=== PATIENT | male | born 1980 | race Two or more races ===

== ENCOUNTER 2021-06-20 11:30 | Emergency (ER) | payer OTHER ==
[~2021-06-20] VITALS: Ht 157.5 cm; Wt 83.5 kg
[2021-06-20 13:31] LABS: Basophils # (auto) 0.1 10 ^3/uL (0-0.2); Basophils % (auto) 1.1 % (0.0-2.0); Eosinophils # (auto) 0 10 ^3/uL (0-0.8); Eosinophils % (auto) 0.7 % (0.0-7.0); Hematocrit 49.4 % (41.0-53.0); Lymphocytes % (auto) 32.6 % (10.0-50.0); Mean Corpuscular Hemoglobin 32.7 pg (28.0-32.0); Mean Corpuscular Hgb Conc. 34.5 g/dL (32.0-36.0); Mean Corpuscular Volume 94.8 fL (80.0-100.0); Monocytes # (auto) 0.5 10 ^3/uL (0-1.3); Monocytes % (auto) 7.9 % (0.0-12.0); Neutrophils # (auto) 3.5 10 ^3/uL (1.6-8.6); Neutrophils % (auto) 57.7 % (37.0-80.0); Nucleated Red Blood Cells % 0.1 %; Red Blood Cells 5.21 10^6/uL (4.5-5.90); Red Cell Distribution Width 13.9 % (11.8-14.3); White Blood Cell 6.1 10^3/uL (4.4-10.8)
[2021-06-20 13:47] LABS: Albumin 3.1 g/dL (3.4-5.0); BUN/Creatinine Ratio 11.4; Calcium 8.8 mg/dL (8.5-10.1)
[2021-06-20 13:49] LABS: Bilirubin, Total 0.6 mg/dL (0.2-1.0); Total Protein 7.1 g/dL (6.4-8.2)
[2021-06-20 17:36] VITALS: BP 118/74
== END 2021-06-20 14:17 | disposition home or self-care (01) ==
LOC: ER 11:30
DX: K52.9 Noninfective gastroenteritis and colitis, unspecified (principal); E44.1 Mild protein-calorie malnutrition; J45.909 Unspecified asthma, uncomplicated; E78.5 Hyperlipidemia, unspecified; Z68.33 Body mass index [BMI] 33.0-33.9, adult
CPT/HCPCS: 36415; 74176; 80053; 83690; 85025

== ENCOUNTER 2021-08-15 17:46 | Inpatient (IN) | payer OTHER ==
[~2021-08-15] VITALS: Ht 157.5 cm; Wt 83.3 kg
[2021-08-15] MEDS ORDERED: SODIUM CHLORIDE 0.9% 1,000 ML IV ONE (18:45)
[2021-08-15] MEDS ORDERED: ONDANSETRON HCL 4 MG/2 ML VIAL IV ONE (18:45)
[2021-08-15 19:31] LABS: Basophils # (auto) 0 10 ^3/uL (0-0.2); Basophils % (auto) 0.4 % (0.0-2.0); Eosinophils # (auto) 0 10 ^3/uL (0-0.8); Eosinophils % (auto) 0.1 % (0.0-7.0); Hematocrit 52.9 % (41.0-53.0); Lymphocytes % (auto) 8.5 % (10.0-50.0); Mean Corpuscular Hemoglobin 30.9 pg (28.0-32.0); Mean Corpuscular Hgb Conc. 32.2 g/dL (32.0-36.0); Mean Corpuscular Volume 95.9 fL (80.0-100.0); Monocytes # (auto) 0.4 10 ^3/uL (0-1.3); Monocytes % (auto) 3.2 % (0.0-12.0); Neutrophils # (auto) 10.4 10 ^3/uL (1.6-8.6); Neutrophils % (auto) 87.8 % (37.0-80.0); Nucleated Red Blood Cells % 0.2 %; Red Blood Cells 5.52 10^6/uL (4.5-5.90); Red Cell Distribution Width 14.6 % (11.8-14.3); White Blood Cell 11.9 10^3/uL (4.4-10.8)
[2021-08-15 19:35] LABS: Albumin 3.6 g/dL (3.4-5.0); Calcium 8.8 mg/dL (8.5-10.1); Potassium 3.6 mmol/L (3.5-5.1)
[2021-08-15 19:39] LABS: BUN/Creatinine Ratio 12.7; Bilirubin, Total 1.1 mg/dL (0.2-1.0); Total Protein 7.5 g/dL (6.4-8.2)
[2021-08-15] MEDS ORDERED: DOCUSATE SOD 100 MG CAP PO PRN (22:45)
[2021-08-15] MEDS ORDERED: HYDROcodone-ACET 5/325MG TAB PO PRN (22:45)
[2021-08-15] MEDS ORDERED: LORazepam 0.5 MG TAB PO PRN (22:45)
[2021-08-15] MEDS ORDERED: ONDANSETRON HCL 4 MG/2 ML VIAL IV PRN (22:45)
[2021-08-15] MEDS ORDERED: DEXTROSE (50%) 50ML SYRG IV PRN (22:45)
[2021-08-15] MEDS ORDERED: ACETAMINOPHEN 325 MG TAB PO PRN (22:45)
[2021-08-15] MEDS: SODIUM CHLORIDE 0.9% 1,000 ML IV SCH (23:45)
[2021-08-16] MEDS: ACCU-CHEK COMFORT CURVE STRIP VI SCH ×6 (00:02→21:52)
[2021-08-16 03:27] VITALS: BP 92/48
[2021-08-16] MEDS: InsuLIN REG 1unit/0.01ml Soln (100units/ml) SC SCH ×6 (04:00→20:00)
[2021-08-16] MEDS ORDERED: CHOL20007 PO (07:28)
[2021-08-16] MEDS ORDERED: LEVO25TA49 PO (07:28)
[2021-08-16] MEDS ORDERED: CYCL-838 PO (07:28)
[2021-08-16] MEDS ORDERED: PANT40TA2 PO (07:28)
[2021-08-16] MEDS ORDERED: LORA-622 PO (07:28)
[2021-08-16] MEDS ORDERED: FENO5TAB PO (07:28)
[2021-08-16] MEDS ORDERED: CEPH-322 PO (07:28)
[2021-08-16 08:00] VITALS: BP 97/54
[2021-08-16 08:00] LABS: Basophils # (auto) 0 10 ^3/uL (0-0.2); Basophils % (auto) 0.4 % (0.0-2.0); Eosinophils # (auto) 0 10 ^3/uL (0-0.8); Eosinophils % (auto) 0.6 % (0.0-7.0); Hematocrit 48.7 % (41.0-53.0); Hemoglobin 15.7 g/dL (13.5-17.5); Lymphocytes # (auto) 1.6 10 ^3/uL (0.4-5.4); Lymphocytes % (auto) 19.7 % (10.0-50.0); Mean Corpuscular Hemoglobin 31.1 pg (28.0-32.0); Mean Corpuscular Hgb Conc. 32.2 g/dL (32.0-36.0); Mean Corpuscular Volume 96.7 fL (80.0-100.0); Monocytes # (auto) 0.4 10 ^3/uL (0-1.3); Monocytes % (auto) 5.1 % (0.0-12.0); Neutrophils % (auto) 74.2 % (37.0-80.0); Red Blood Cells 5.04 10^6/uL (4.5-5.90); Red Cell Distribution Width 14.6 % (11.8-14.3); White Blood Cell 8.1 10^3/uL (4.4-10.8)
[2021-08-16 08:45] LABS: Potassium 3.6 mmol/L (3.5-5.1)
[2021-08-16 08:58] LABS: BUN/Creatinine Ratio 10.7; Calcium 7.8 mg/dL (8.5-10.1)
[2021-08-16] MEDS ORDERED: cefTRIAXone 1GM/50ML D5W 50 ML IV SCH (10:00)
[2021-08-16 12:00] VITALS: BP 105/62
[2021-08-16 12:02] VITALS: BP 97/54
[2021-08-16] MEDS ORDERED: IPRATROPIUM BROM 0.5 MG/2.5ML INH SOL NEB SCH (14:00)
[2021-08-16] MEDS: IPRATROPIUM BROM 0.5 MG/2.5ML INH SOL NEB SCH ×2 (14:30→21:42)
[2021-08-16] MEDS: SODIUM CHLORIDE 0.9% 1,000 ML IV SCH (15:34)
[2021-08-16 16:00] VITALS: BP 94/57
[2021-08-16] MEDS: BUDESONIDE (INHALATION) 0.5 MG/2 ML NEB NEB SCH (21:42)
[2021-08-16 22:00] VITALS: BP 129/76
[2021-08-17] MEDS: ACCU-CHEK COMFORT CURVE STRIP VI SCH ×3 (00:02→09:06)
[2021-08-17] MEDS: InsuLIN REG 1unit/0.01ml Soln (100units/ml) SC SCH ×6 (04:00→21:24)
[2021-08-17 04:32] VITALS: BP 122/82
[2021-08-17] MEDS: BUDESONIDE (INHALATION) 0.5 MG/2 ML NEB NEB SCH ×2 (06:15→19:19)
[2021-08-17] MEDS: IPRATROPIUM BROM 0.5 MG/2.5ML INH SOL NEB SCH ×3 (06:15→19:19)
[2021-08-17 09:00] VITALS: BP 98/50
[2021-08-17] MEDS: PANTOPRAZOLE 40 MG/10 ML VIAL INJ IV SCH (10:05)
[2021-08-17] MEDS ORDERED: DEXTROSE (50%) 50ML SYRG IV PRN (11:00)
[2021-08-17] MEDS ORDERED: CYCLOBENZAPRINE HCL 10 MG TAB PO PRN (11:00)
[2021-08-17 13:00] VITALS: BP 115/64
[2021-08-17] MEDS: SODIUM CHLORIDE 0.9% 1,000 ML IV SCH (14:00)
[2021-08-17 17:00] VITALS: BP 133/70
[2021-08-17 20:35] LABS: Urine WBC None Seen /hpf (0 - 3)
[2021-08-17 20:41] LABS: Urine Bacteria NONE SEEN /hpf (None Seen); Urine Blood Negative /uL (Negative); Urine Specific Gravity 1.007 (1.001-1.035)
[2021-08-17 22:08] VITALS: BP 121/71
[2021-08-18] MEDS: SODIUM CHLORIDE 0.9% 1,000 ML IV SCH ×2 (00:45→17:58)
[2021-08-18 05:04] VITALS: BP 110/66
[2021-08-18] MEDS: LEVOTHYROXINE SODIUM 25 MCG TAB PO SCH (06:03)
[2021-08-18] MEDS: InsuLIN REG 1unit/0.01ml Soln (100units/ml) SC SCH ×4 (06:47→21:43)
[2021-08-18] MEDS: IPRATROPIUM BROM 0.5 MG/2.5ML INH SOL NEB SCH ×3 (07:20→19:42)
[2021-08-18 09:00] VITALS: BP 115/69
[2021-08-18] MEDS: PANTOPRAZOLE 40 MG/10 ML VIAL INJ IV SCH (09:34)
[2021-08-18] MEDS: BUDESONIDE (INHALATION) 0.5 MG/2 ML NEB NEB SCH ×2 (09:58→19:42)
[2021-08-18 13:00] VITALS: BP 131/83
[2021-08-18] MEDS ORDERED: GASTROGRAFIN 120 ML SOL ONE (14:57)
[2021-08-18] MEDS ORDERED: EZ-GAS II GRANULES (RADIOLOGY USE) PO ONE (15:00)
[2021-08-18 17:00] VITALS: BP 120/76
[2021-08-19 05:00] VITALS: BP 98/71
[2021-08-19] MEDS: SODIUM CHLORIDE 0.9% 1,000 ML IV SCH ×2 (05:42→21:30)
[2021-08-19] MEDS: InsuLIN REG 1unit/0.01ml Soln (100units/ml) SC SCH ×4 (05:46→21:27)
[2021-08-19] MEDS: LEVOTHYROXINE SODIUM 25 MCG TAB PO SCH (06:10)
[2021-08-19] MEDS: IPRATROPIUM BROM 0.5 MG/2.5ML INH SOL NEB SCH ×3 (06:17→22:31)
[2021-08-19] MEDS: BUDESONIDE (INHALATION) 0.5 MG/2 ML NEB NEB SCH ×2 (06:17→22:31)
[2021-08-19 09:00] VITALS: BP 136/72
[2021-08-19 10:08] VITALS: BP 136/72
[2021-08-19] MEDS: PANTOPRAZOLE 40 MG/10 ML VIAL INJ IV SCH (11:07)
[2021-08-19 13:00] VITALS: BP 140/70
[2021-08-19 17:06] VITALS: BP 105/68
[2021-08-19 22:00] VITALS: BP 122/79
[2021-08-20 05:23] VITALS: BP 117/84
[2021-08-20] MEDS: LEVOTHYROXINE SODIUM 25 MCG TAB PO SCH (06:31)
[2021-08-20] MEDS: InsuLIN REG 1unit/0.01ml Soln (100units/ml) SC SCH ×2 (06:33→12:10)
[2021-08-20] MEDS: BUDESONIDE (INHALATION) 0.5 MG/2 ML NEB NEB SCH (06:39)
[2021-08-20] MEDS: IPRATROPIUM BROM 0.5 MG/2.5ML INH SOL NEB SCH ×2 (06:39→12:11)
[2021-08-20 09:00] VITALS: BP 112/77
[2021-08-20] MEDS: PANTOPRAZOLE 40 MG/10 ML VIAL INJ IV SCH (10:55)
[2021-08-20 13:00] VITALS: BP 115/67
== END 2021-08-20 13:23 | disposition home or self-care (01) | DRG 247 ==
LOC: ER 17:46 → OVERFLOW 22:32 → EAST 08-16 01:24
PROVIDERS: ADMIT Hospitalist; ATTEND Family Medicine
DX: K56.600 Partial intestinal obstruction, unspecified as to cause (principal); K76.0 Fatty (change of) liver, not elsewhere classified; J44.1 Chronic obstructive pulmonary disease with (acute) exacerbation; K62.5 Hemorrhage of anus and rectum; Q90.9 Down syndrome, unspecified; E03.9 Hypothyroidism, unspecified; E78.00 Pure hypercholesterolemia, unspecified; Z20.822 Contact with and (suspected) exposure to COVID-19; G89.29 Other chronic pain
CPT/HCPCS: 36415; 74176; 74246; 76705; 80048; 80053; 80061; 81001; 82962; 83036; 83605; 83690; 84484; 85025; 93005; 94640; 96361; 96365; 96375; C9113; G0378; J0696; J1815; J2405

== ENCOUNTER 2021-12-14 21:29 | Emergency (ER) | payer MEDICAID ==
[~2021-12-14] VITALS: Ht 167.6 cm; Wt 86.0 kg
[~2021-12-14 21:29] MED LIST: CEPH-322 PO; CHOL20007 PO; CYCL-838 PO; FENO5TAB PO; LEVO25TA49 PO; LORA-622 PO; PANT40TA2 PO
[2021-12-14 22:19] VITALS: BP 120/77
[2021-12-14 22:35] LABS: Basophils # (auto) 0.1 10 ^3/uL (0-0.2); Basophils % (auto) 0.7 % (0.0-2.0); Eosinophils # (auto) 0 10 ^3/uL (0-0.8); Eosinophils % (auto) 0.1 % (0.0-7.0); Hematocrit 51.1 % (41.0-53.0); Hemoglobin 17.2 g/dL (13.5-17.5); Lymphocytes # (auto) 1.1 10 ^3/uL (0.4-5.4); Lymphocytes % (auto) 8.9 % (10.0-50.0); Mean Corpuscular Hemoglobin 31.7 pg (28.0-32.0); Mean Corpuscular Hgb Conc. 33.6 g/dL (32.0-36.0); Mean Corpuscular Volume 94.4 fL (80.0-100.0); Monocytes # (auto) 0.5 10 ^3/uL (0-1.3); Monocytes % (auto) 4.3 % (0.0-12.0); Neutrophils # (auto) 10.4 10 ^3/uL (1.6-8.6); Red Blood Cells 5.41 10^6/uL (4.5-5.90); Red Cell Distribution Width 14.4 % (11.8-14.3)
[2021-12-14] MEDS ORDERED: IOHEXOL 350 MG/ML 100ML IJ ONE (22:50)
[2021-12-14 22:59] LABS: Albumin 3.4 g/dL (3.4-5.0); BUN/Creatinine Ratio 11.3; Calcium 8.9 mg/dL (8.5-10.1); Magnesium 2.3 mg/dL (1.6-2.6); Potassium 4.1 mmol/L (3.5-5.1)
[2021-12-14 23:07] LABS: Bilirubin, Total 0.8 mg/dL (0.2-1.0); Total Protein 7.3 g/dL (6.4-8.2)
[2021-12-14 23:38] LABS: Urine Bacteria NONE SEEN /hpf (None Seen); Urine Blood Negative /uL (Negative); Urine WBC <1 /hpf (0 - 3)
[2021-12-14 23:39] LABS: Urine Specific Gravity > 1.050 (1.001-1.035)
[2021-12-14] MEDS ORDERED: metroNIDAZOLE 500 MG TAB PO ONE (23:45)
[2021-12-14] MEDS ORDERED: levoFLOXacin 500 MG TAB PO ONE (23:45)
[2021-12-14] MEDS ORDERED: LEVO500T31 PO (23:49)
[2021-12-14] MEDS ORDERED: METR500T PO (23:49)
== END 2021-12-15 00:30 | disposition home or self-care (01) ==
LOC: EDBD 21:29 → EDUNIT# 21:29 → ER 21:32
DX: K29.70 Gastritis, unspecified, without bleeding (principal); K52.9 Noninfective gastroenteritis and colitis, unspecified; J45.909 Unspecified asthma, uncomplicated; E78.5 Hyperlipidemia, unspecified; E03.9 Hypothyroidism, unspecified; Z90.89 Acquired absence of other organs; Z79.899 Other long term (current) drug therapy
CPT/HCPCS: 36415; 74177; 80053; 81001; 82150; 83690; 83735; 85025; 99285; Q9967

== ENCOUNTER 2023-08-07 19:54 | Emergency (ER) | payer MEDICAID ==
[~2023-08-07] VITALS: Ht 157.5 cm; Wt 77.2 kg
[~2023-08-07 19:54] MED LIST changes: -CEPH-322 PO; +CEPH250C PO; +LEVO25TA2 PO; -LEVO25TA49 PO; +LEVO500T31 PO; +METR500T PO
[2023-08-07] MEDS ORDERED: AMOX500C2 PO (22:53)
[2023-08-07] MEDS: DexAMETHasone SOD PHOS 10MG/1ML VIAL INJ IM ONE (23:36)
[2023-08-07 23:37] VITALS: BP 116/59; PULSE 88; RESP 18; TEMP 98.9
[2023-08-07] MEDS: ACETAMINOPHEN 325 MG TAB PO ONE (23:37)
[2023-08-07 23:47] VITALS: O2SAT 98
== END 2023-08-07 23:49 | disposition home or self-care (01) ==
LOC: ER 19:54
DX: J02.0 Streptococcal pharyngitis (principal); J45.909 Unspecified asthma, uncomplicated; E78.5 Hyperlipidemia, unspecified; Z98.890 Other specified postprocedural states; Z79.899 Other long term (current) drug therapy
CPT/HCPCS: 71045; 96372; 99283; J1100

== ENCOUNTER 2024-07-11 15:50 | Emergency (ER) | payer MEDICAID ==
[~2024-07-11] VITALS: Ht 160 cm; Wt 78.0 kg
[~2024-07-11 15:50] MED LIST changes: +AMOX500C2 PO
--- NOTE | 2024-07-11 16:22 | ED.PDOC ---
GI ASSESSMENT HPI Comments HPI: 43 y/o M, brought in by mother, presents to the ED for CC of constipation. Patients mother, reports patient has been experiencing symptoms of decreased bowel output with associated symptoms of intermittent diffuse abdominal pain x3days. Mother relays, patient no longer wants to finish meals which is unlikely of him. Mother endorses, seeing PCP for symptoms and having labs drawn that same day; reports elevated WBC at 12.2. Patient states, last bowel movement to be as of today (07/11/24) and describes it to be loose in appearance. Patient denies fever, chills, nausea, vomiting, melena, or hematochezia. No other symptoms or modifying factors present at this time. Patient taking daily fiber MiraLax Vitals Temperature: 97.8 Respiratory rate: 18 SpO2: 96%RA Heart rate: 88 Blood pressure: 119/74 Past Medical History: Bowel Obstruction, Asthma, Hyperthyroidism, Down-Syndrome Past Surgical History: Tonsillectomy Social History: Denies Any Constipation: DELMA: HPI: Poor Historian. REVIEW OF SYSTEMS: CONSTITUTIONAL: Denies acute: fever, diaphoresis, chills, generalized weakness. HEAD: Denies acute: headache, photophobia Eyes: Denies acute: Double vision, vision loss, eye pain, eye discharge. EARS: Denies acute: tinnitus, hearing loss, ear discharge, ear pain, THROAT: Denies acute: sore throat, swelling, difficulty swallowing , pain with swallowing, change in voice. NECK: Denies acute: neck pain, neck swelling, stiff neck. HEART: Denies acute : chest pain, palpitations, LUNGS: Denies acute: SOB, wheezing, cough, hemoptysis ABDOMEN: Denies acute: Nausea, Vomiting, , melena , hematemesis, hematochezia SKIN: Denies acute: rash, redness, lesions, itchiness. EXTREMITIES: Denies acute: calf pain, numbness, tingling, weakness, denies pain in extremity. Denies acute: Low back pain. Neuro: Denies acute: focal neurological deficit, motor or sensory focal neurological deficit, tremors, seizure like activity, confusion, dizziness, change in mental status, loss of bowel or bladder function, cauda equina like symptoms. : Denies acute: dysuria, hematuria, flank pain, increase in urinary frequency. PSYCH: Denies acute: hallucination, suicidal ideation, homicidal ideation. PHYSICAL EXAM: General: ----no----acute distress, awake and alert. Head: normocephalic, atraumatic. Neck: supple, trachea is midline, no swelling. Throat: Normal phonation. Eyes:, no erythema, no purulent discharge, no proptosis, no icterus. Heart: regular rate, regular rhythm, no significant murmur appreciated. Lungs: no apparent respiratory distress, Able to speak in full sentences. No wheezing, no rhonchi, no crackles. No stridors Clear to auscultation bilaterally. Abdomen: non tender to palpation, non distended, soft, no guarding, no rebound, + bowel sounds. Neuro: Awake, Alert, oriented to name, self, situation, follows commands GCS=15. Speech is normal. Skin: no petechia, no purpura, no cyanosis, non-pale, not jaundice. Lower extremities: --no - Pitting edema no deformity, no focal swelling, no calf TTP. Makes eye contact. moves all four extremities. Ambulating in the ED independently. ED COURSE: Chief Complaint: Constipation Time Seen by MD: 16:00 Primary Care Provider: BECCA Reviewed Notes: Nurses Notes, Medications, Allergies Allergies: Coded Allergies: NO KNOWN ALLERGIES (Unverified , 06/20/21) Home Meds Active Scripts Metronidazole (Flagyl) 500 Mg Tab, 1 TAB PO TID for 7 Days, #21 TAB Prov:MARBIN MARTINEZ DO 07/11/24 Ciprofloxacin Hcl (Cipro) 500 Mg Tab, 500 MG PO BID for 7 Days, #14 TAB Prov:MARBIN MARTINEZ DO 07/11/24 Amoxicillin Trihydrate (Amoxicillin) 500 Mg Cap, 1 CAP PO BID for 10 Days, #20 CAP Prov:AMADEO GONZALEZ PAC 08/07/23 Metronidazole (Flagyl) 500 Mg Tab, 500 MG PO TID, #21 TAB Prov:REINA GARCIA MD 12/14/21 Levofloxacin (Levaquin) 500 Mg Tab, 500 MG PO DAILY PRN, #30 TAB Prov:REINA GARCIA MD 12/14/21 Reported Medications Cholecalciferol (VITAMIN D3) 2,000 Unit Tab, 1 TAB PO DAILY, #30 TAB 5 Refills 08/16/21 Cephalexin (KEFLEX CAPSULE) 250 Mg Cp, 400 MG PO QID 08/16/21 Pantoprazole Sodium Sesquihydr (Protonix) 40 Mg Tab, 40 MG PO DAILY, #30 TAB 08/16/21 Cyclobenzaprine Hcl (CYCLOBENZAPRINE HCL) 7.5 Mg Tab, 10 MG PO BID, TAB 08/16/21 Loratadine (Claritin) 10 Mg Tab, 1 TAB PO DAILY, #30 TAB 5 Refills 08/16/21 Fenofibrate (Tricor) 145 Mg Tab, 145 MG PO DAILY, TAB 08/16/21 Levothyroxine Sodium (Synthroid) 25 Mcg Tab, 1 TAB PO DAILY, #30 TAB 5 Refills 08/16/21 Information Source: Patient, Relative (Mother) Mode of Arrival: Ambulatory Timing: Days Duration: Since onset Prehospital treatment: None Quality: None Vomitus: None Stool: Impaction Severity: Moderate Recent: None Recent Hx of: None Pain Location: Diffuse, None Modifying Factors: Nothing Associated sign and symptoms: Diarrhea, Constipation, Abdominal Pain Was a procedure done? Was a procedure done?: No GI differential Dx Differential Diagnosis: Bowel Obstruction, Constipation, Diverticular disease, Inflammatory BD, Other (DDX include but not limited to diverticulitis, colitis, gastroenteritis, acute abdomen, SBO, enteritis, constipation, volvulus, appendicitis, Gallbladder disease, choledocolithiasis, ascending cholangitis, pancreatitis, intraAbdominal mass/neoplasm, hepatitis, UTI, pylonephritis, kidney stone, aneurysm, dissection, Inflammatory bowel disease, gastroparesis, ischemic bowel.) X-Ray, Labs, Meds, VS Vital Signs Date Time Temp Pulse Resp B/P (MAP) Pulse Ox O2 Delivery O2 Flow Rate FiO2 07/11/24 20:40 Room Air* 0 21 07/11/24 20:11 88 18 96 Room Air 07/11/24 20:11 98.7 88 18 118/84 (95) 96 98.7 07/11/24 16:01 97.8 88 18 119/78 (92) 96 97.8 Lab Test 07/11/24 18:46 07/11/24 16:24 07/11/24 16:03 Range/Units Lactic Acid Level 1.7 3.4 *H 0.4-2.0 mmol/L White Blood Count 10.0 4.4-10.8 10^3/uL Red Blood Count 5.46 4.5-5.90 10^6/uL Hemoglobin 14.3 13.5-17.5 g/dL Hematocrit 44.9 41.0-53.0 % Mean Corpuscular Volume 82.2 80.0-100.0 fL Mean Corpuscular Hemoglobin 26.1 L 28.0-32.0 pg Mean Corpuscular Hemoglobin Concent 31.8 L 32.0-36.0 g/dL Red Cell Distribution Width 28.6 H 11.8-14.3 % Platelet Count 305 140-450 10^3/uL Mean Platelet Volume 7.0 6.9-10.8 fL Neutrophils (%) (Auto) 84.5 H 37.0-80.0 % Lymphocytes (%) (Auto) 11.3 10.0-50.0 % Monocytes (%) (Auto) 3.8 0.0-12.0 % Eosinophils (%) (Auto) 0.1 0.0-7.0 % Basophils (%) (Auto) 0.3 0.0-2.0 % Neutrophils # (Auto) 8.4 1.6-8.6 10 ^3/uL Lymphocytes # (Auto) 1.1 0.4-5.4 10 ^3/uL Monocytes # (Auto) 0.4 0-1.3 10 ^3/uL Eosinophils # (Auto) 0 0-0.8 10 ^3/uL Basophils # (Auto) 0 0-0.2 10 ^3/uL Nucleated Red Blood Cells 0.1 % Sodium Level 138 136-145 mmol/L Potassium Level 4.0 3.5-5.1 mmol/L Chloride Level 101 98-107 mmol/L Carbon Dioxide Level 29 20-31 mmol/L Anion Gap 8 5-15 Blood Urea Nitrogen 15 9-23 mg/dL Creatinine 1.39 H 0.700-1.30 mg/dL Glomerular Filtration Rate Calc 65 >90 mL/min BUN/Creatinine Ratio 10.8 10.0-20.0 Serum Glucose 230 H 74-106 mg/dL Calcium Level 9.1 8.7-10.4 mg/dL Total Bilirubin 0.4 0.2-1.0 mg/dL Aspartate Amino Transferase (AST) 17 13-40 U/L Alanine Aminotransferase (ALT) 21 7-40 U/L Alkaline Phosphatase 57 46-116 U/L Total Protein 6.7 5.7-8.2 g/dL Albumin 4.1 3.2-4.8 g/dL Lipase 26 12-53 U/L Urine Color Light-yellow Yellow Urine Clarity Clear Clear Urine pH 7.0 5.0-9.0 Urine Specific [place] 1.005 1.001-1.035 Urine Protein Negative Negative Urine Ketones Negative Negative Urine Blood Negative Negative /uL Urine Nitrite Negative Negative Urine Bilirubin Negative Negative Urine Urobilinogen Normal Negative mg/dL Urine Leukocyte Esterase Negative Negative /uL Urine RBC None seen 0 - 3 /hpf Urine Microscopic WBC < 1 0-3 /HPF Urine Squamous Epithelial Cells None seen <5 /hpf Urine Bacteria None seen None Seen /hpf Urine Glucose Normal Normal mg/dL Current Medications Medications (Trade) Dose Ordered Sig/Amrit Route Start Time Stop Time Status Last Admin Polyethylene Glycol/ Electrolytes (Golytely) 1 kit ONCE ONCE PO 07/11/24 18:45 07/11/24 19:08 DC 07/11/24 20:40 Sodium Chloride 1,000 ml @ 1,000 mls/hr Q1H ONCE IV 07/11/24 18:45 07/11/24 19:44 DC 07/11/24 20:16 [place] [id number] Ph: [phone] DIAGNOSTIC IMAGING Diagnostic Imaging Report : [id number] Signed PATIENT: JIM NGUYỄN RACCT: [id number] UNIT: [id number] : 1980 LOC: ER ROOM / BED: / AGE / SEX: 43 / M ADM STATUS: REG ER SERVICE 1609 ORDERING PHYSICIAN: MARBIN MARTINEZ DO PROCEDURE(s): KUB - KUB ABDOMEN SINGLE VIEW REASON: Diarrhea constipation abdominal pain ORDER NUMBER(s): [id number], ACCESSION NUMBER(s): [id number] Date: 07/11/2024 04:24 PM Examination: XY KUB ABDOMEN SINGLE VIEW History: Diarrhea constipation abdominal pain Comparison: None TECHNIQUE: Frontal views of the abdomen was obtained. FINDINGS: Bowel gas pattern is unremarkable. The lung bases are unremarkable. No acute osseous abnormality identified. IMPRESSION: 1. Nonobstructive bowel gas pattern. 2. Stool throughout the colon ATED BY: TAL CRUZ Jr., DO DICTATED DATE/TIME: 07/11/241631 SIGNED BY: TAL CRUZ Jr., SIGNED DATE/TIME: 07/11/24 163 CC: [place] [id number] Ph: [phone] DIAGNOSTIC IMAGING Diagnostic Imaging Report : [id number] Signed PATIENT: JIM NGUYỄN RACCT: [id number] UNIT: [id number] : 1980 LOC: ER ROOM / BED: / AGE / SEX: 43 / M ADM STATUS: REG ER SERVICE 51 ORDERING PHYSICIAN: MARBIN MARTINEZ DO PROCEDURE(s): ABPL - CT AB PEL WO CON-NO ORAL OR IV REASON: abd pain , constipation, h/o SBO ORDER NUMBER(s): [id number], ACCESSION NUMBER(s): [id number] Exam: CT CT AB PEL WO CON-NO ORAL OR IV History: abd pain , constipation, h/o SBO Comparison Study: GIWAG on DOS: 08/20/21, CT ABD PELVIS WO CONTRAST on DOS: 08/15/21, CT ABD PELVIS WO CONTRAST on DOS: 06/20/21 TECHNIQUE: Multidetector CT of the abdomen pelvis without IV contrast. Axial, coronal and sagittal multiplanar reformats were obtained from the axial data set by the technologist. Radiation Dose Information: CT Dose: CTDI volume is 8.41 mGy. Dose-length product is 446.99 mGy*cm FINDINGS: Bibasilar atelectasis. Partially visualized heart is normal in size. Small pericardial effusion. Liver, spleen, gallbladder, pancreas and adrenal glands are unremarkable. There appears to be fatty invagination within the bilateral diaphragmatic crura ; unchanged from prior imaging. There appears to be recanalization of the umbilical vein Kidneys and ureters unremarkable. Moderate distention of the urinary bladder up to the level of L4-L5. Prostate is unremarkable. Stomach is unremarkable. Small bowel loops unremarkable. Appendix is not definitely visualized. No pericecal inflammatory reaction is noted. Redundant cecum terminating containing gallbladder right hepatic lobe. Mild wall thickening of the ascending colon extending to the hepatic flexure shouldering over the proximal transverse colon. Small to moderate amount of fecal material within the colon. No evidence of intraperitoneal free air or free fluid. No evidence of aortic aneurysm. No significant lymphadenopathy. Small fat containing bilateral inguinal hernias. No destructive osseous lesions are noted. IMPRESSION: Mild wall thickening of the ascending colon extending to the hepatic flexure. Correlate for colitis. Shouldering over the proximal transverse colon at the transition of the colonic wall thickening normal transverse colon with large amount of fecal material. Follow-up is recommended to exclude neoplasm. Small pericardial effusion. ATED BY: OPAL CROCKER DO DICTATED DATE/TIME: 07/11/242006 SIGNED BY: OPAL CROCKER DO SIGNED DATE/TIME: 07/11/242006 CC: Time of 1ST Reevaluation: 16:30 Reevaluation 1ST: Unchanged Time of 2ND Reevaluation: 18:38 (Family does not want any CT scan imaging at this time. Patient was reassessed at this time. He denies any pain.) Time of 3RD Reevaluation: 18:53 (THE FAMILY IS NOW REQUESTING A CT SCAN OF THE ABDOMEN AND PELVIS) Patient Education/Counseling: Diagnosis, Treatment Family Education/Counseling: No Family Present Comments Patient presented with the above HPI.--abdominal pain----workup was initiated. patient was found with the above mentioned diagnosis. the following medications were ordered: please refer to order lists of meds and tests obtained by myself Dr. Martinez. Patient ED course and VS have been stabilized. Patient has been reassessed in the ED and remained in a stable condition. Pertinent incidental findings were discussed with the patient and/or family. Patient/family voices understanding and is agreeable with plan. Patient has been observed in the ED adequate length of time to insure improvement/stability. Escalation of care considered: Consideration of escalation to observation or admission Initially mother did not want any CT scan imaging. She requested only KUB. Later she change your mind which added and increase the patient's length of stay. Patient was sent home with [employer] bottle to finish Patient was DISCHARGED home in a stable condition. All the reports of any imaging studies that were ordered by myself were reviewed by myself. Departure 1 Departure Time of Disposition: 18:37 Impression: Primary Impression: Constipation Additional Impressions: Colitis Pericardial effusion Bilateral inguinal hernia Disposition: HOME / SELF CARE / HOMELESS Condition: Stable Additional Instructions: Additional instructions: You MUST follow-up with your primary care/family doctor in 1 to 2 days. If you are unable to see your primary care/family doctor, please return to our emergency room for re-assessment and re-evaluation in 1 to 2 days. Return to the emergency room here in our facility or to the nearest ER [facility] if your symptoms change or worsen. CONSULTATIONS: you MUST Follow-up for consultation as soon as possible with: -gastroenterology in 1-2 days. Please call for the appointment You MUST call the consultants office yourself to make an appointment. You may need to arrange that through your insurance and/or your primary/family doctor. If you are unable to see the customer sales consultant in 1 to 2 days, you must return to our emergency room (or any other ER of your choice) for re-assessment and re- evaluation. Adequate fluid hydration. Liquid diet for the next 72 hours. Finish the [employer] bottle in the next 12 hours. Below is a copy of your radiological report for follow up: [place] [address] Ph: [phone] DIAGNOSTIC IMAGING Diagnostic Imaging Report : [id number] Signed PATIENT: JIM NGUYỄN ACCT: [id number] UNIT: [id number] : 1980 LOC: ER ROOM / BED: / AGE / SEX: 43 / M ADM STATUS: REG ER SERVICE 1609 ORDERING PHYSICIAN: MARBIN MARTINEZ DO PROCEDURE(s): KUB - KUB ABDOMEN SINGLE VIEW REASON: Diarrhea constipation abdominal pain ORDER NUMBER(s): [id number], ACCESSION NUMBER(s): [id number] Date: 07/11/2024 04:24 PM Examination: XY KUB ABDOMEN SINGLE VIEW History: Diarrhea constipation abdominal pain Comparison: None TECHNIQUE: Frontal views of the abdomen was obtained. FINDINGS: Bowel gas pattern is unremarkable. The lung bases are unremarkable. No acute osseous abnormality identified. IMPRESSION: 1. Nonobstructive bowel gas pattern. 2. Stool throughout the colon ATED BY: TAL CRUZ Jr., DO DICTATED DATE/TIME: 07/11/24 163 SIGNED BY: TAL CRUZ Jr., SIGNED DATE/TIME: 07/11/24 163 CC: [place] [id number] Ph: [phone] DIAGNOSTIC IMAGING Diagnostic Imaging Report : [id number] Signed PATIENT: JIM NGUYỄN ACCT: [id number] UNIT: [id number] : 1980 LOC: ER ROOM / BED: / AGE / SEX: 43 / M ADM STATUS: REG ER SERVICE 185 ORDERING PHYSICIAN: MARBIN MARTINEZ DO PROCEDURE(s): ABPL - CT AB PEL WO CON-NO ORAL OR IV REASON: abd pain , constipation, h/o SBO ORDER NUMBER(s): [id number], ACCESSION NUMBER(s): [id number] Exam: CT CT AB PEL WO CON-NO ORAL OR IV History: abd pain , constipation, h/o SBO Comparison Study: GIWAG on DOS: 08/20/21, CT ABD PELVIS WO CONTRAST on DOS: 08/15/21, CT ABD PELVIS WO CONTRAST on DOS: 06/20/21 TECHNIQUE: Multidetector CT of the abdomen pelvis without IV contrast. Axial, coronal and sagittal multiplanar reformats were obtained from the axial data set by the technologist. Radiation Dose Information: CT Dose: CTDI volume is 8.41 mGy. Dose-length product is 446.99 mGy*cm FINDINGS: Bibasilar atelectasis. Partially visualized heart is normal in size. Small pericardial effusion. Liver, spleen, gallbladder, pancreas and adrenal glands are unremarkable. There appears to be fatty invagination within the bilateral diaphragmatic crura ; unchanged from prior imaging. There appears to be recanalization of the umbilical vein Kidneys and ureters unremarkable. Moderate distention of the urinary bladder up to the level of L4-L5. Prostate is unremarkable. Stomach is unremarkable. Small bowel loops unremarkable. Appendix is not definitely visualized. No pericecal inflammatory reaction is noted. Redundant cecum terminating containing gallbladder right hepatic lobe. Mild wall thickening of the ascending colon extending to the hepatic flexure shouldering over the proximal transverse colon. Small to moderate amount of fecal material within the colon. No evidence of intraperitoneal free air or free fluid. No evidence of aortic aneurysm. No significant lymphadenopathy. Small fat containing bilateral inguinal hernias. No destructive osseous lesions are noted. IMPRESSION: Mild wall thickening of the ascending colon extending to the hepatic flexure. Correlate for colitis. Shouldering over the proximal transverse colon at the transition of the colonic wall thickening normal transverse colon with large amount of fecal material. Follow-up is recommended to exclude neoplasm. Small pericardial effusion. ATED BY: OPAL CROCKER DO DICTATED DATE/TIME: 07/11/242006 SIGNED BY: OPAL CROCKER DO SIGNED DATE/TIME: 07/11/242006 CC: e-Prescriptions Metronidazole (Flagyl) 500 Mg Tab 1 TAB PO TID for 7 Days, #21 TAB Prov: MARBIN MARTINEZ DO 07/11/24 Ciprofloxacin Hcl (Cipro) 500 Mg Tab 500 MG PO BID for 7 Days, #14 TAB Prov: MARBIN MARTINEZ DO 07/11/24 Discharged With: Self, Relative (Mother) Heart Score Heart Score: Heart Score Response (Comments) Value History N/A 0 EKG N/A 0 Age N/A 0 Risk Factors N/A 0 Troponin N/A 0 Total 0 I personally scribed for MARBIN MARTINEZ DO ([email or web address]) on 07/11/24 at 16:22. Electronically submitted by Gudelia Caceres ([email or web address]). I personally scribed for MARBIN MARTINEZ DO ([email or web address]) on 07/11/24 at 17:22. Electronically submitted by Gudelia Caceres ([email or web address]). I personally scribed for MARBIN MARTINEZ DO ([email or web address]) on 07/12/24 at 00:02. Electronically submitted by Francisco Javier Ha ([email or web address]). MARBIN MARTINEZ DO July 11, 2024 16:22
[2024-07-11 16:26] LABS: Urine Bacteria None Seen /hpf (None Seen)
--- NOTE | 2024-07-11 16:34 | DVH ---
Date: 07/11/2024 04:24 PM Examination: XY KUB ABDOMEN SINGLE VIEW History: Diarrhea constipation abdominal pain Comparison: None TECHNIQUE: Frontal views of the abdomen was obtained. FINDINGS: Bowel gas pattern is unremarkable. The lung bases are unremarkable. No acute osseous abnormality identified. IMPRESSION: 1. Nonobstructive bowel gas pattern. 2. Stool throughout the colon
[2024-07-11 16:46] LABS: Basophils # (auto) 0 10 ^3/uL (0-0.2); Basophils % (auto) 0.3 % (0.0-2.0); Eosinophils # (auto) 0 10 ^3/uL (0-0.8); Eosinophils % (auto) 0.1 % (0.0-7.0); Hematocrit 44.9 % (41.0-53.0); Hemoglobin 14.3 g/dL (13.5-17.5); Lymphocytes # (auto) 1.1 10 ^3/uL (0.4-5.4); Lymphocytes % (auto) 11.3 % (10.0-50.0); Mean Corpuscular Hemoglobin 26.1 pg (28.0-32.0); Mean Corpuscular Hgb Conc. 31.8 g/dL (32.0-36.0); Mean Corpuscular Volume 82.2 fL (80.0-100.0); Monocytes # (auto) 0.4 10 ^3/uL (0-1.3); Monocytes % (auto) 3.8 % (0.0-12.0); Neutrophils # (auto) 8.4 10 ^3/uL (1.6-8.6); Neutrophils % (auto) 84.5 % (37.0-80.0); Nucleated Red Blood Cells % 0.1 %; Platelet Count (auto) 305 10^3/uL (140-450); Red Blood Cells 5.46 10^6/uL (4.5-5.90)
[2024-07-11 16:47] LABS: Red Cell Distribution Width 28.6 % (11.8-14.3)
[2024-07-11 16:50] LABS: Urine Blood Negative /uL (Negative); Urine Clarity Clear (Clear); Urine Color Light-Yellow (Yellow); Urine Protein, UAD Negative (Negative); Urine Specific Gravity 1.005 (1.001-1.035); Urine Squamous Epithelial Cell None Seen /hpf (<5); Urine Urobilinogen Normal (Negative); Urine WBC < 1 /HPF (0-3)
[2024-07-11 16:58] LABS: Alanine Aminotransferase 21 U/L (7-40); Albumin 4.1 g/dL (3.2-4.8); Alkaline Phosphatase 57 U/L (46-116); Anion Gap 8 (5-15); Aspartate Aminotransferase 17 U/L (13-40); BUN/Creatinine Ratio 10.8 (10.0-20.0); Bilirubin, Total 0.4 mg/dL (0.2-1.0); Blood Urea Nitrogen 15 mg/dL (9-23); Calcium 9.1 mg/dL (8.7-10.4); Carbon Dioxide 29 mmol/L (20-31); Chloride 101 mmol/L (98-107); Glucose 230 mg/dL (74-106); Sodium 138 mmol/L (136-145); Total Protein 6.7 g/dL (5.7-8.2)
[2024-07-11 17:06] LABS: Lactic Acid w/Reflex 3.4 mmol/L (0.4-2.0)
--- NOTE | 2024-07-11 20:09 | DVH ---
Exam: CT CT AB PEL WO CON-NO ORAL OR IV History: abd pain , constipation, h/o SBO Comparison Study: GIWAG on DOS: 08/20/21, CT ABD PELVIS WO CONTRAST on DOS: 08/15/21, CT ABD PELVIS WO CO NTRAST on DOS: 06/20/21 TECHNIQUE: Multidetector CT of the abdomen pelvis without IV contrast. Axial, coronal and sagittal mu ltiplanar reformats were obtained from the axial data set by the technologist. Radiation Dose Information: CT Dose: CTDI volume is 8.41 mGy. Dose-length product is 446.99 mGy*cm FINDINGS: Bibasilar atelectasis. Partially visualized heart is normal in size. Small pericardial effusion. Liver, spleen, gallbladder, pancreas and adrenal glands are unremarkable. There appears to be fatty i nvagination within the bilateral diaphragmatic crura ; unchanged from prior imaging. There appears to be recanalization of the umbilical vein Kidneys and ureters unremarkable. Moderate distention of the urinary bladder up to the level of L4-L5 . Prostate is unremarkable. Stomach is unremarkable. Small bowel loops unremarkable. Appendix is not definitely visualized. No p ericecal inflammatory reaction is noted. Redundant cecum terminating containing gallbladder right hep atic lobe. Mild wall thickening of the ascending colon extending to the hepatic flexure shouldering o matt the proximal transverse colon. Small to moderate amount of fecal material within the colon. No evidence of intraperitoneal free air or free fluid. No evidence of aortic aneurysm. No significant lymphadenopathy. Small fat containing bilateral inguinal hernias. No destructive osseous lesions are noted. IMPRESSION: Mild wall thickening of the ascending colon extending to the hepatic flexure. Correlate for colitis. Shouldering over the proximal transverse colon at the transition of the colonic wall thickening alisha l transverse colon with large amount of fecal material. Follow-up is recommended to exclude neoplasm. Small pericardial effusion.
[2024-07-11 20:11] VITALS: BP 118/84; PULSE 88; RESP 18; TEMP 98.7; O2SAT 96
[2024-07-11] MEDS ORDERED: CIPR-173 PO (20:16)
[2024-07-11] MEDS ORDERED: METR-344 PO (20:16)
[2024-07-11] MEDS: SODIUM CHLORIDE 0.9% 1,000 ML IV ONE (20:16)
[2024-07-11] MEDS: GOLYTELY 4L KIT PO ONE (20:40)
== END 2024-07-11 20:58 | disposition home or self-care (01) ==
LOC: ER 15:50
DX: K52.9 Noninfective gastroenteritis and colitis, unspecified (principal); K59.00 Constipation, unspecified; K40.20 Bilateral inguinal hernia, without obstruction or gangrene, not specified as recurrent; I31.39 Other pericardial effusion (noninflammatory); J45.909 Unspecified asthma, uncomplicated; E03.9 Hypothyroidism, unspecified; Q90.9 Down syndrome, unspecified; K56.609 Unspecified intestinal obstruction, unspecified as to partial versus complete obstruction; Z79.890 Hormone replacement therapy; Z79.899 Other long term (current) drug therapy; Z90.89 Acquired absence of other organs
CPT/HCPCS: 36415; 74018; 74176; 80053; 81001; 83605; 83690; 85025; 96360; 99284; J7030

== ENCOUNTER 2024-08-15 21:43 | Inpatient (IN) | payer MEDICAID ==
[~2024-08-15] VITALS: Ht 157.5 cm; Wt 78.6 kg
[~2024-08-15 21:43] MED LIST changes: +CIPR-173 PO; +METR-344 PO
--- NOTE | 2024-08-15 22:04 | ED.PDOC ---
Back pain HPI HPI Comments 44 year old male brought in by EMS presents to the ED with a chief complaint of back pain onset today (08/15/24) around 09:30. Mother states patient began experiencing low back pain today, has taken pain medication, applied heating pads with no improvement of symptoms. Mother also states patient had a temperature of 100.8 F earlier today. PMHx asthma, HLD, thyroid disease. Denies fall, hematuria, abdominal pain, flank pain, nausea, vomiting, diarrhea, headache, dizziness. No other symptoms or modifying factors present at this time. Chief Complaint: Back Pain Time Seen by MD: 21:55 Primary Care Provider: [facility] Reviewed Notes: Medications, Allergies Allergies: Coded Allergies: NO KNOWN ALLERGIES (Unverified , 06/20/21) Home Meds Active Scripts Metronidazole (Flagyl) 500 Mg Tab, 1 TAB PO TID for 7 Days, #21 TAB Prov:MARBIN MARTINEZ DO 07/11/24 Ciprofloxacin Hcl (Cipro) 500 Mg Tab, 500 MG PO BID for 7 Days, #14 TAB Prov:MARBIN MARTINEZ DO 07/11/24 Amoxicillin Trihydrate (Amoxicillin) 500 Mg Cap, 1 CAP PO BID for 10 Days, #20 CAP Prov:AMADEO GONZALEZ [facility] 08/07/23 Metronidazole (Flagyl) 500 Mg Tab, 500 MG PO TID, #21 TAB Prov:REINA GARCIA MD 12/14/21 Levofloxacin (Levaquin) 500 Mg Tab, 500 MG PO DAILY PRN, #30 TAB Prov:REINA GARCIA MD 12/14/21 Reported Medications Cholecalciferol (VITAMIN D3) 2,000 Unit Tab, 1 TAB PO DAILY, #30 TAB 5 Refills 08/16/21 Cephalexin (KEFLEX CAPSULE) 250 Mg Cp, 400 MG PO QID 08/16/21 Pantoprazole Sodium Sesquihydr (Protonix) 40 Mg Tab, 40 MG PO DAILY, #30 TAB 08/16/21 Cyclobenzaprine Hcl (CYCLOBENZAPRINE HCL) 7.5 Mg Tab, 10 MG PO BID, TAB 08/16/21 Loratadine (Claritin) 10 Mg Tab, 1 TAB PO DAILY, #30 TAB 5 Refills 08/16/21 Fenofibrate (Tricor) 145 Mg Tab, 145 MG PO DAILY, TAB 08/16/21 Levothyroxine Sodium (Synthroid) 25 Mcg Tab, 1 TAB PO DAILY, #30 TAB 5 Refills 08/16/21 Information Source: Patient, Relative (Mother), Emergency Med Personnel Mode of Arrival: EMS Timing: Hours Duration: Since onset Location of Back pain: (B) Lower back Severity: Moderate Prehospital treatment: Pain Meds Quality: Sharp Onset: Spontaneous History of: Chronic Back Pain Past Medical History PAST MEDICAL HISTORY: Asthma, High Lipids, Thyroid Surgical History: Tonsillectomy Family History Family History: Reviewed,noncontributory to illness Social History Smoker: Non-Smoker Alcohol: Denies ETOH Use Drugs: Denies Drug Use Lives In: Home Constitutional: denies: chills, diaphoresis, fatigue, fever, malaise, sweats, weakness, others EENTM: denies: blurred vision, double vision, ear bleeding, ear discharge, ear drainage, ear pain, ear ringing, eye pain, eye redness, hearing loss, mouth pain, mouth swelling, nasal discharge, nose bleeding, nose congestion, nose pain, photophobia, tearing, throat pain, throat swelling, voice changes, others Respiratory: denies: cough, hemoptysis, orthopnea, SOB at rest, shortness of breath, SOB with excertion, stridor, wheezing, others Cardiovascular: denies: chest pain, dizzy spells, diaphoresis, Dyspnea on exertion, edema, irregular heart beat, left arm pain, lightheadedness, palpitations, PND, syncope, others Gastrointestinal: denies: abdomen distended, abdominal pain, blood streaked bowels, constipated, diarrhea, dysphagia, difficulty swallowing, hematemesis, melena, nausea, poor appetite, poor fluid intake, rectal bleeding, rectal pain, vomiting, others Genitourinary: denies: burning, dysuria, flank pain, frequency, hematuria, incontinence, penile discharge, penile sore, pain, testicle pain, testicle swelling, urgency, others Neurological: denies: dizziness, fainting, headache, left sided numbness, left sided weakness, numbness, paresthesia, pre-existing deficit, right sided numbness, right sided weakness, seizure, speech problems, tingling, tremors, weakness, others Musculoskeletal: reports: back pain (low); denies: gout, joint pain, joint swelling, muscle pain, muscle stiffness, neck pain, others Integumetry: denies: bruises, change in color, change in hair/nails, dryness, laceration, lesions, lumps, rash, wounds, others Allergic/Immunocompromised: denies: Difficulty Healing, Frequent Infections, Hives, Itching, others Hematologic/Lymphatic: denies: anemia, blood clots, easy bleeding, easy bruising, swollen glands, others Endocrine: denies: excessive hunger, excessive sweating, excessive thirst, excessive urination, flushing, intolerance to cold, intolerance to heat, unexplained weight gain, unexplained weight loss, others Psychiatric: denies: anxiety, bipolar disorder, depression, hopeless, panic disorder, schizophrenia, sleepless, suicidal, others All Other Systems: Reviewed and Negative Physical Exam General Appearance: Normal HEENT: Normal ENT Inspection, Pharynx Normal, TMs Normal Neck: Full Range of Motion, Non-Tender, Normal, Normal Inspection Respiratory: Chest Non-Tender, Lungs Clear, No Accessory Muscle Use, No Respiratory Distress, Normal Breath Sounds Cardiovascular: No Edema, No JVD, No Murmur, No Gallop, Normal Peripheral Pulses, Regular Rate/Rhythm Breast Exam: Deferred Gastrointestinal: No Organomegaly, Non Tender, No Pulsatile Mass, Normal Bowel Sounds, Soft Genitalia: Deferred Pelvic: Deferred Rectal: Deferred Extremities: No calf tenderness, Normal capillary refill, Normal inspection, Normal range of motion, Non-tender, No pedal edema Musculoskeletal : Apperance: Normal Neurologic: Alert, college or university business manager II-XII nml as Tested, No Motor Deficits, Normal Affect, Normal Mood, No Sensory Deficits Cerebellar Function: Normal Reflexes: Normal Skin: Dry, Normal Color, Warm Lymphatic: No Adenopathy Was a procedure done? Was a procedure done?: No Back Pain Differential Dx Differential Diagnosis: Appendicitis, Bowel Obstruction, Musculoskeletal Pain, Pyelonephritis X-Ray, Labs, Meds, VS Vital Signs Date Time Temp Pulse Resp B/P (MAP) Pulse Ox O2 Delivery O2 Flow Rate FiO2 08/15/24 21:50 98.5 101 18 104/67 (79) 96 98.5 Lab Test 08/15/24 22:35 08/15/24 22:01 Range/Units White Blood Count 6.9 4.4-10.8 10^3/uL Red Blood Count 5.01 4.5-5.90 10^6/uL Hemoglobin 13.4 L 13.5-17.5 g/dL Hematocrit 41.7 41.0-53.0 % Mean Corpuscular Volume 83.2 80.0-100.0 fL Mean Corpuscular Hemoglobin 26.6 L 28.0-32.0 pg Mean Corpuscular Hemoglobin Concent 32.0 32.0-36.0 g/dL Red Cell Distribution Width 23.4 H 11.8-14.3 % Platelet Count 234 140-450 10^3/uL Mean Platelet Volume 7.1 6.9-10.8 fL Neutrophils (%) (Auto) 80.7 H 37.0-80.0 % Lymphocytes (%) (Auto) 12.4 10.0-50.0 % Monocytes (%) (Auto) 6.1 0.0-12.0 % Eosinophils (%) (Auto) 0.2 0.0-7.0 % Basophils (%) (Auto) 0.6 0.0-2.0 % Neutrophils # (Auto) 5.6 1.6-8.6 10 ^3/uL Lymphocytes # (Auto) 0.9 0.4-5.4 10 ^3/uL Monocytes # (Auto) 0.4 0-1.3 10 ^3/uL Eosinophils # (Auto) 0 0-0.8 10 ^3/uL Basophils # (Auto) 0 0-0.2 10 ^3/uL Nucleated Red Blood Cells 0.0 % Sodium Level 139 136-145 mmol/L Potassium Level 3.6 3.5-5.1 mmol/L Chloride Level 106 98-107 mmol/L Carbon Dioxide Level 25 20-31 mmol/L Anion Gap 8 5-15 Blood Urea Nitrogen 13 9-23 mg/dL Creatinine 1.17 0.700-1.30 mg/dL Glomerular Filtration Rate Calc 80 >90 mL/min BUN/Creatinine Ratio 11.1 10.0-20.0 Serum Glucose 148 H 74-106 mg/dL Calcium Level 8.7 8.7-10.4 mg/dL Urine Color Yellow Yellow Urine Clarity Clear Clear Urine pH 6.0 5.0-9.0 Urine Specific [place] 1.034 1.001-1.035 Urine Protein Trace H Negative Urine Ketones Negative Negative Urine Blood Negative Negative /uL Urine Nitrite Negative Negative Urine Bilirubin Negative Negative Urine Urobilinogen Normal Negative mg/dL Urine Leukocyte Esterase Negative Negative /uL Urine RBC 3 0 - 3 /hpf Urine Microscopic WBC < 1 0-3 /HPF Urine Squamous Epithelial Cells Few <5 /hpf Urine Calcium Oxalate Crystals Few None Seen Urine Bacteria Few H None Seen /hpf Urine Mucus Few None Seen Urine Glucose Normal Normal mg/dL Current Medications Medications (Trade) Dose Ordered Sig/Amrit Route Start Time Stop Time Status Last Admin Sodium Chloride 1,000 ml @ 1,000 mls/hr Q1H ONCE IV 08/15/24 22:15 08/15/24 23:14 DC 08/16/24 04:25 Time of 1ST Reevaluation: 22:25 Reevaluation 1ST: Unchanged Patient Education/Counseling: Diagnosis, Treatment, Prognosis Family Education/Counseling: Diagnosis, Treatment, Prognosis SEPSIS Sepsis Screen Physician Orders Ct Ab Pel Wo Con-No Oral Or Iv (08/15/24 23:58) Morphine Sulfate Injection (08/16/24 05:15) Vital Signs Date Time Temp Pulse Resp B/P (MAP) Pulse Ox O2 Delivery O2 Flow Rate FiO2 08/15/24 21:50 98.5 101 18 104/67 (79) 96 98.5 Laboratory Tests Test 08/15/24 22:35 White Blood Count 6.9 10^3/uL (4.4-10.8) Medications Medications Dose Ordered Sig/Amrit Route Start Time Stop Time Status Last Admin Dose Admin Sodium Chloride 1,000 ml @ 1,000 mls/hr Q1H ONCE IV 08/15/24 22:15 08/15/24 23:14 DC 08/16/24 04:25 Departure 1 Departure Time of Disposition: 05:03 (Patient presented with abdominal pain that was concerning for possible appendicits, gastritis, cholecystitis, colitis, gastroenteritis, sbo, or orther possible surgical emergency. Data: 1. I ordered and reviewed the result of at least 3 labs including a CBC, BMP, and Urinalysis. 2. I independently interpreted the following tests: CT Abdoment and Pelvis is concerning for possible SBO .Risk:This patient has a high risk of morbidity due to further diagnostic testing or treatment and may suffer from an acute abdominal process disorder. Workup reveals possible SBO and patient should be admitted for further workup. and possible expert consultation. ) Impression: Primary Impression: Lower back pain Qualified Codes: M54.50 - Low back pain, unspecified Additional Impression: Small bowel obstruction Disposition: 09 ADMITTED INPATIENT Admit to: Med Surg Condition: Serious Critical Care Note Critical Care Time?: Yes Critical care comment: Intractable abdominal pain Authorized and Performed by: Dana Chambers MD Total critical care time: Approximately 48 minutes Due to a high probability of clinically significant, life threatening deterioration, the patient required my highest level of preparedness to intervene emergently and I personally spent this critical care time directly and personally managing the patient. This critical care time included obtaining a history; examining the patient; pulse oximetry; ordering and review of studies; arranging urgent treatment with development of a management plan; evaluation of patient's response to treatment; frequent reassessment; and, discussions with other providers. This critical care time was performed to assess and manage the high probability of imminent, life-threatening deterioration that could result in multi-organ failure. It was exclusive of separately billable procedures and treating other patients and teaching time. Please see my other sections and the rest of the note for further information on patient assessment and treatment. Stability Stability form required: No I personally scribed for DANA CHAMBERS MD ([email or web address]) on 08/15/24 at 22:04. Electronically submitted by Drea Mei ([email or web address]). DANA CHAMBERS MD Aug 15, 2024 22:04
[2024-08-15 22:51] LABS: Hematocrit 41.7 % (41.0-53.0); Hemoglobin 13.4 g/dL (13.5-17.5); Mean Corpuscular Hemoglobin 26.6 pg (28.0-32.0); Mean Corpuscular Volume 83.2 fL (80.0-100.0); Nucleated Red Blood Cells % 0.0 %
[2024-08-15 23:03] LABS: Chloride 106 mmol/L (98-107); Potassium 3.6 mmol/L (3.5-5.1); Sodium 139 mmol/L (136-145)
[2024-08-15 23:04] LABS: Anion Gap 8 (5-15); Calcium 8.7 mg/dL (8.7-10.4); Carbon Dioxide 25 mmol/L (20-31)
[2024-08-15 23:09] LABS: BUN/Creatinine Ratio 11.1 (10.0-20.0); Blood Urea Nitrogen 13 mg/dL (9-23)
[2024-08-15 23:12] LABS: Glucose 148 mg/dL (74-106)
[2024-08-16 02:02] LABS: Urine Protein, UAD TRACE (Negative)
--- NOTE | 2024-08-16 03:56 | DVH ---
Exam: CT CT AB PEL WO CON-NO ORAL OR IV History: lower abdominal and back pain Comparison Study: CT CT AB PEL WO CON-NO ORAL OR IV on DOS: 07/11/24, GIWAG on DOS: 08/20/21, CT ABD PEL VIS WO CONTRAST on DOS: 08/15/21 TECHNIQUE: Multidetector CT of the abdomen and pelvis was performed from lung bases to pubic symphysi s. Imaging was performed without IV contrast. Axial, coronal and sagittal multiplanar reformats were obtained from the axial data set by the technologist. Radiation optimization: All CT scans at this facility use at least one of these dose optimization soila hniques: automated exposure control mA and/or kV adjustment per patient size (includes targeted exam s where dose is matched to clinical indication) or iterative reconstruction. Radiation Dose Information: CT Dose: CTDI volume is 14.9 mGy. Dose-length product is 889 mGy*cm FINDINGS: Evaluation of solid organs is limited due to lack of intravenous contrast use. Imaged portions of the lung bases demonstrate subsegmental atelectasis. There is a small hiatal herni a. There is diffuse hepatic steatosis. Gallbladder, spleen, adrenal glands, pancreas, and kidneys ap pear unremarkable. No evidence of bowel obstruction. Single abnormal appearing dilated loop of small bowel in the right lower quadrant measuring 3.5 cm with a aneurysmal portion with sharp angulation and fecalization of internal contents. Mildly prominent mesenteric lymph nodes measuring up to 0.6 cm in short axis with lorena mesentery. No free fluid, free air, or adenopathy. No suspicious osseous lesion. IMPRESSION: 1. Single abnormal appearing dilated loop of small bowel in the right lower quadrant measuring 3.5 cm with a aneurysmal portion with sharp angulation and fecalization of internal contents. Consider smal l-bowel follow-through or CT enterography for further evaluation. 2. Lorena mesentery with mildly prominent mesenteric lymph nodes, nonspecific. Short-term follow-up is recommended. 3. Lobulated appearance of the liver with hepatic steatosis. Correlation with lFTs is recommended.
[2024-08-16] MEDS: SODIUM CHLORIDE 0.9% 1,000 ML IV ONE ×3 (04:25→08:23)
[2024-08-16] MEDS: MORPHINE SULFATE 4 MG/ML SYR/VIAL IV ONE ×2 (04:25→06:07)
[2024-08-16 06:14] VITALS: O2SAT 98
[2024-08-16] MEDS: ONDANSETRON HCL 4 MG/2 ML VIAL IV ONE (06:16)
[2024-08-16] MEDS: KETOROLAC TROMETH 30 MG/ML 1ML VIAL IV ONE (06:16)
[2024-08-16 07:45] VITALS: PULSE 90; RESP 12; O2SAT 94
[2024-08-16] MEDS: NALOXONE HCL 1MG/ML 2ML SYRINGE IV ONE (08:25)
--- NOTE | 2024-08-16 08:44 | DVHINCON2 ---
Date of service: Aug 16, [address] findings , dilated bowel loop History of Present Illness History Source: Patient, MD Notes Exam Limitations: No limitations HPI 44 year old male brought in to ED by EMS, per mother and patient chief complaint of back pain. Mother states patient has a history of obstruction and almost had surgery for the obstruction previously. Currently the patient had diarhea last night and is passing gas today. abdomen soft, non distended and no complaint of abdominal pain, only back pain. Denies nausea or vomiting. Home Meds Active Scripts Metronidazole (Flagyl) 500 Mg Tab, 1 TAB PO TID for 7 Days, #21 TAB Prov:MARBIN MARTINEZ DO 07/11/24 Ciprofloxacin Hcl (Cipro) 500 Mg Tab, 500 MG PO BID for 7 Days, #14 TAB Prov:MARBIN MARTINEZ DO 07/11/24 Amoxicillin Trihydrate (Amoxicillin) 500 Mg Cap, 1 CAP PO BID for 10 Days, #20 CAP Prov:AMADEO GONZALEZ PAC 08/07/23 Metronidazole (Flagyl) 500 Mg Tab, 500 MG PO TID, #21 TAB Prov:REINA GARCIA MD 12/14/21 Levofloxacin (Levaquin) 500 Mg Tab, 500 MG PO DAILY PRN, #30 TAB Prov:REINA GARCIA MD 12/14/21 Reported Medications Cholecalciferol (VITAMIN D3) 2,000 Unit Tab, 1 TAB PO DAILY, #30 TAB 5 Refills 08/16/21 Cephalexin (KEFLEX CAPSULE) 250 Mg Cp, 400 MG PO QID 08/16/21 Pantoprazole Sodium Sesquihydr (Protonix) 40 Mg Tab, 40 MG PO DAILY, #30 TAB 08/16/21 Cyclobenzaprine Hcl (CYCLOBENZAPRINE HCL) 7.5 Mg Tab, 10 MG PO BID, TAB 08/16/21 Loratadine (Claritin) 10 Mg Tab, 1 TAB PO DAILY, #30 TAB 5 Refills 08/16/21 Fenofibrate (Tricor) 145 Mg Tab, 145 MG PO DAILY, TAB 08/16/21 Levothyroxine Sodium (Synthroid) 25 Mcg Tab, 1 TAB PO DAILY, #30 TAB 5 Refills 08/16/21 Past Medical History Cardiac: Hyperlipidemia Pulmonary: Asthma Central Nervous System: No pertinent Hx GI: No pertinent Hx Hemotology/Oncology: No pertinent Hx Hepatobiliary: No pertinent Hx Psychiatric: No pertinent Hx Musculoskeletal: No pertinent Hx Rheumotologic: No pertinent Hx Infectious Disease: No peritnent Hx ENT: No pertinent Hx Renal/: No pertinent Hx Endocrine: Hypothyroidism Dermatology: No pertinent Hx Past Surgical History: Tonsillectomy Family History: No pertinent Hx Smoker: No Hx (Negative) Alocohol: None Drugs: None Lives with: With family Review of Systems Constitutional: No symptom reported Ears, Nose, & Throat: No symptom reported Eyes: No symptom reported Pulmonary/Respiratory: No symptom reported Cardiovascular: No symptom reported Gastrointestinal: Diarrhea Genitourinary: No symptom reported Musculoskeletal: Back pain Skin: No symptom reported Psychiatric: No symptom reported Endocrine: No symptom reported Hemotologic/Lymphatic: No symptom reported H&P Exam Vital Signs Vital Signs Date Time Temp Pulse Resp B/P (MAP) Pulse Ox O2 Delivery O2 Flow Rate FiO2 08/16/24 08:00 83 08/16/24 07:45 12 94 Room Air* 0 21 08/16/24 07:45 98.8 92/45 (61) 98.8 General Appeara: Well nourished, Obese Cardiovascular/Chest: Normal inspection, Regular rate, Normal Rhythm Abdominal Exam: Normal bowel sounds, Soft, No tenderness LATHMAKER Exam: Normal hearing Neuro/Mental St: Alert, Oriented Skin Exam: Normal inspection, Normal color, Warm/dry Labs/Xrays Labs Test 08/15/24 22:35 08/15/24 22:01 Range/Units White Blood Count 6.9 4.4-10.8 10^3/uL Red Blood Count 5.01 4.5-5.90 10^6/uL Hemoglobin 13.4 L 13.5-17.5 g/dL Hematocrit 41.7 41.0-53.0 % Mean Corpuscular Volume 83.2 80.0-100.0 fL Mean Corpuscular Hemoglobin 26.6 L 28.0-32.0 pg Mean Corpuscular Hemoglobin Concent 32.0 32.0-36.0 g/dL Red Cell Distribution Width 23.4 H 11.8-14.3 % Platelet Count 234 140-450 10^3/uL Mean Platelet Volume 7.1 6.9-10.8 fL Neutrophils (%) (Auto) 80.7 H 37.0-80.0 % Lymphocytes (%) (Auto) 12.4 10.0-50.0 % Monocytes (%) (Auto) 6.1 0.0-12.0 % Eosinophils (%) (Auto) 0.2 0.0-7.0 % Basophils (%) (Auto) 0.6 0.0-2.0 % Neutrophils # (Auto) 5.6 1.6-8.6 10 ^3/uL Lymphocytes # (Auto) 0.9 0.4-5.4 10 ^3/uL Monocytes # (Auto) 0.4 0-1.3 10 ^3/uL Eosinophils # (Auto) 0 0-0.8 10 ^3/uL Basophils # (Auto) 0 0-0.2 10 ^3/uL Nucleated Red Blood Cells 0.0 % Sodium Level 139 136-145 mmol/L Potassium Level 3.6 3.5-5.1 mmol/L Chloride Level 106 98-107 mmol/L Carbon Dioxide Level 25 20-31 mmol/L Anion Gap 8 5-15 Blood Urea Nitrogen 13 9-23 mg/dL Creatinine 1.17 0.700-1.30 mg/dL Glomerular Filtration Rate Calc 80 >90 mL/min BUN/Creatinine Ratio 11.1 10.0-20.0 Serum Glucose 148 H 74-106 mg/dL Calcium Level 8.7 8.7-10.4 mg/dL Urine Color Yellow Yellow Urine Clarity Clear Clear Urine pH 6.0 5.0-9.0 Urine Specific [place] 1.034 1.001-1.035 Urine Protein Trace H Negative Urine Ketones Negative Negative Urine Blood Negative Negative /uL Urine Nitrite Negative Negative Urine Bilirubin Negative Negative Urine Urobilinogen Normal Negative mg/dL Urine Leukocyte Esterase Negative Negative /uL Urine RBC 3 0 - 3 /hpf Urine Microscopic WBC < 1 0-3 /HPF Urine Squamous Epithelial Cells Few <5 /hpf Urine Calcium Oxalate Crystals Few None Seen Urine Bacteria Few H None Seen /hpf Urine Mucus Few None Seen Urine Glucose Normal Normal mg/dL Assessment/Plan Primary Diagnosis back pain Plan patient has history of previous bowel obstruction in the past, no history of any abdominal surgeries patients complaint is back pain, consulted for possible bowel obstruction, however clinical presentation does not support active obstruction. no abdominal pain , denies nausea and vomiting, BM (diarrhea) last night, passing gas abdomen soft, non distended, non tender to palpation CT reviewed with Dr. Tyler and due to history of obstruction and CT findings will order a small bowel follow through Plan: small bowel series with Gastrografin rule out obstruction Plan discussed with: Patient, Other (Dr. Tyler ) Visit Coding Surgery Date of Service if different f: Aug 16, 2024 Billing Provider: FLY TYLER MD Surgery Visit Codes: 33438 - INP CONSULT <80 MIN ROGELIO SMITH DAIRY CHEMIST Aug 16, 2024 08:44
[2024-08-16 10:11] LABS: INR 1.17 (0.9-1.15); Partial Thromboplastin Time 28.1 SEC (24.5-34.5); Prothrombin Time 12.2 sec (9.3-11.8)
[2024-08-16] MEDS: GASTROGRAFIN 120 ML SOL ONE (10:46)
[2024-08-16] MEDS ORDERED: FERR324T4 PO (12:00)
[2024-08-16] MEDS: SODIUM CHLORIDE 0.9% 1,000 ML IV SCH (12:32)
--- NOTE | 2024-08-16 12:34 | DVHHP2 ---
History of Present Illness Reason for Visit: Back pain and abdominal pain History of Present Illness Greg Aguilera is a 44-year-old male with past medical history of hyperlipidemia, asthma, arthritis, down syndrome, hypothyroidism, sleep apnea, chronic hematochezia, SBO, and chronic mid back pain who presents to the ED with low back pain and abdominal pain x1 day. Per mom Laura at the bedside she reports that patient's care is established at [place]. She also states that he had an enteroscopy at [facility]. She also states that he had an MRI abdominal pelvis done. She endorses that he is continuously on 2 L nasal cannula of oxygen at home. She also states she has a routine of giving him Vicodin every 8 hours at home and the last one was given at 4a.m. today while he was here in the hospital. Did encourage and advised her to not give any home medications to the patient while he is here in the hospital. She states that she understands and will not continue to give him anymore medications. She endorses and he has had recurrent bowel obstructions at least twice with no surgery. Patient states that his low back pain is better. Mom states that he can not use the numeric pain scale. Mom states that he usually has chronic mid back pain not due to a fall or injury but she reports that the low back pain just happened today. Mom states that he is passing gas but has not had a bowel movement. Patient denies any chest pain, fever, chills, abdominal pain, nausea, vomiting, or shortness of breath. General surgery and INFORMATION SECURITY CONSULTANT at the bedside upon examination earlier. Cardiovascular: hyperipidemia Pulmonary: Asthma Endocrine: Hypothyroidism Past Medical History Chronic mid back pain Arthritis Down syndrome Sleep apnea not using a CPAP machine Chronic hematochezia SBO Past Surgical History: Other (Colonoscopy), Tonsillectomy Family History: Other (Mom with rheumatoid arthritis, diabetes, CKD 3, hep C, TIA, DE, and AFib.) Smoke: No ALCOHOL: none Drugs: None Lives: with Family Domestic Violence: Neg Review of Systems Gastrointestinal: Abdominal Pain Musculoskeletal: back pain Allergies: Coded Allergies: NO KNOWN ALLERGIES (Unverified , 06/20/21) Medications Current Medications Medications Dose Ordered Sig/Amrit Route Start Time Stop Time Status Last Admin Dose Admin Sodium Chloride 1,000 ml @ 125 mls/hr Q8H IV 08/16/24 12:00 UNV Diagnostic Test (Pha) 1 strip ACHS 08/16/24 17:00 UNV Insulin Human Regular ACHS SC 08/16/24 17:00 UNV Dextrose 50 ml UD PRN IV 08/16/24 12:00 UNV Acetaminophen/ Hydrocodone Bitart 1 tab Q4HP PRN PO 08/16/24 12:00 UNV Ondansetron HCl 4 mg Q4HP PRN IV 08/16/24 12:00 UNV Acetaminophen 650 mg Q6HP PRN PO 08/16/24 12:00 UNV Exam Vital Signs Vital Signs Date Time Temp Pulse Resp B/P (MAP) Pulse Ox O2 Delivery O2 Flow Rate FiO2 08/16/24 10:00 84 12 92/45 (61) 92 08/16/24 07:45 Room Air* 0 21 08/16/24 07:45 98.8 98.8 General Appearance: Alert, Cooperative, No acute distress HEENT: Atraumatic, Mucous membr. moist/pink Respiratory: Clear to auscultation, Normal air movement Cardiovascular: Normal S1, Normal S2 Abdominal: Soft Extremities: No clubbing, No cyanosis, Normal pulses Skin: No significant lesion Neuro: Normal speech, Normal tone, Sensation intact Labs/Xrays Labs Test 08/16/24 09:33 08/15/24 22:35 08/15/24 22:01 Range/Units Prothrombin Time 12.2 H 9.3-11.8 sec Prothrombin Time INR 1.17 H 0.9-1.15 Activated Partial Thromboplast Time 28.1 24.5-34.5 SEC White Blood Count 6.9 4.4-10.8 10^3/uL Red Blood Count 5.01 4.5-5.90 10^6/uL Hemoglobin 13.4 L 13.5-17.5 g/dL Hematocrit 41.7 41.0-53.0 % Mean Corpuscular Volume 83.2 80.0-100.0 fL Mean Corpuscular Hemoglobin 26.6 L 28.0-32.0 pg Mean Corpuscular Hemoglobin Concent 32.0 32.0-36.0 g/dL Red Cell Distribution Width 23.4 H 11.8-14.3 % Platelet Count 234 140-450 10^3/uL Mean Platelet Volume 7.1 6.9-10.8 fL Neutrophils (%) (Auto) 80.7 H 37.0-80.0 % Lymphocytes (%) (Auto) 12.4 10.0-50.0 % Monocytes (%) (Auto) 6.1 0.0-12.0 % Eosinophils (%) (Auto) 0.2 0.0-7.0 % Basophils (%) (Auto) 0.6 0.0-2.0 % Neutrophils # (Auto) 5.6 1.6-8.6 10 ^3/uL Lymphocytes # (Auto) 0.9 0.4-5.4 10 ^3/uL Monocytes # (Auto) 0.4 0-1.3 10 ^3/uL Eosinophils # (Auto) 0 0-0.8 10 ^3/uL Basophils # (Auto) 0 0-0.2 10 ^3/uL Nucleated Red Blood Cells 0.0 % Sodium Level 139 136-145 mmol/L Potassium Level 3.6 3.5-5.1 mmol/L Chloride Level 106 98-107 mmol/L Carbon Dioxide Level 25 20-31 mmol/L Anion Gap 8 5-15 Blood Urea Nitrogen 13 9-23 mg/dL Creatinine 1.17 0.700-1.30 mg/dL Glomerular Filtration Rate Calc 80 >90 mL/min BUN/Creatinine Ratio 11.1 10.0-20.0 Serum Glucose 148 H 74-106 mg/dL Calcium Level 8.7 8.7-10.4 mg/dL Urine Color Yellow Yellow Urine Clarity Clear Clear Urine pH 6.0 5.0-9.0 Urine Specific [place] 1.034 1.001-1.035 Urine Protein Trace H Negative Urine Ketones Negative Negative Urine Blood Negative Negative /uL Urine Nitrite Negative Negative Urine Bilirubin Negative Negative Urine Urobilinogen Normal Negative mg/dL Urine Leukocyte Esterase Negative Negative /uL Urine RBC 3 0 - 3 /hpf Urine Microscopic WBC < 1 0-3 /HPF Urine Squamous Epithelial Cells Few <5 /hpf Urine Calcium Oxalate Crystals Few None Seen Urine Bacteria Few H None Seen /hpf Urine Mucus Few None Seen Urine Glucose Normal Normal mg/dL Exam: CT CT AB PEL WO CON-NO ORAL OR IV History: lower abdominal and back pain Comparison Study: CT CT AB PEL WO CON-NO ORAL OR IV on DOS: 07/11/24, GIWAG on DOS: 08/20/21, CT ABD PELVIS WO CONTRAST on DOS: 08/15/21 TECHNIQUE: Multidetector CT of the abdomen and pelvis was performed from lung bases to pubic symphysis. Imaging was performed without IV contrast. Axial, coronal and sagittal multiplanar reformats were obtained from the axial data set by the technologist. Radiation optimization: All CT scans at this facility use at least one of these dose optimization techniques: automated exposure control mA and/or kV adjustment per patient size (includes targeted exams where dose is matched to clinical indication) or iterative reconstruction. Radiation Dose Information: CT Dose: CTDI volume is 14.9 mGy. Dose-length product is 889 mGy*cm FINDINGS: Evaluation of solid organs is limited due to lack of intravenous contrast use. Imaged portions of the lung bases demonstrate subsegmental atelectasis. There is a small hiatal hernia. There is diffuse hepatic steatosis. Gallbladder, spleen, adrenal glands, pancreas, and kidneys appear unremarkable. No evidence of bowel obstruction. Single abnormal appearing dilated loop of small bowel in the right lower quadrant measuring 3.5 cm with a aneurysmal portion with sharp angulation and fecalization of internal contents. Mildly prominent mesenteric lymph nodes measuring up to 0.6 cm in short axis with lorena mesentery. No free fluid, free air, or adenopathy. No suspicious osseous lesion. IMPRESSION: 1. Single abnormal appearing dilated loop of small bowel in the right lower quadrant measuring 3.5 cm with a aneurysmal portion with sharp angulation and fecalization of internal contents. Consider small-bowel follow-through or CT enterography for further evaluation. 2. Lorena mesentery with mildly prominent mesenteric lymph nodes, nonspecific. Short-term follow-up is recommended. 3. Lobulated appearance of the liver with hepatic steatosis. Correlation with lFTs is recommended. Assessment/Plan Assessment/Plan Assessment Intractable low back pain rule out fracture Intractable abdominal pain rule out small-bowel obstruction Acute hypoxic respiratory failure Hyperglycemia Obesity History of hyperlipidemia History of asthma History of chronic mid back pain History of down syndrome History of hypothyroidism History of arthritis History of sleep apnea not using CPAP History of chronic hematochezia History of small-bowel obstruction History of tonsillectomy History of colonoscopy Plan Admit to med surge Supportive oxygen NS boluses given in ED CT abdomen and pelvis Pain management Antiemetics UA Hemoglobin A1c ISS and Accu-Cheks NPO IV fluids Chest x-ray ordered X-ray lumbar spine ordered DVT prophylaxis-SCDs PUD prophylaxis-PPIs Discussed plan of care with patient, patient's mom, and nurse General surgery following Counseled patient and mom on lifestyle modifications, diet, and exercise [id number] Preventive counseling healthy eating habits, physical activity, and regular checkups Plan discussed with: Patient, Other (mother) My Orders Orders - CIRO PEREZ Procedure Category Date Status Time Lumbar Spine 3 View XY 08/16/24 Logged 11:54 Sodium Chloride 0.9% PHA 08/16/24 Logged 12:00 Glucose Blood PHA 08/16/24 Transmitted (Accu-Chek Comfort 17:00 Mild Sliding Scale PHA 08/16/24 Transmitted 17:00 Dextrose 50% Syringe PHA 08/16/24 Transmitted 12:00 Allergies [facility] 08/16/24 In Process 11:54 Code Status CODE 08/16/24 Transmitted 11:54 Hydrocodone-Acet PHA 08/16/24 Transmitted 5/325mg Tab ([place] 12:00 Ondansetron Hcl PHA 08/16/24 Transmitted (Zofran) 12:00 Complete Blood Count LAB 08/17/24 Verified 04:00 Comprehensive LAB 08/17/24 Verified Metabolic Panel 04:00 Npo (Nothing By DIET 08/16/24 Transmitted Mouth) Diet Lunch Acetaminophen Tablet PHA 08/16/24 Transmitted (Tylenol Tablet) 12:00 Sequential [facility] 08/16/24 In Process Compression Device Hemoglobin A1c LAB 08/16/24 Verified 11:54 Admit ADMIT 08/16/24 Verified 11:54 Date of Service: Aug 16, 2024 Billing Provider: CIRO PEREZ Common Visit Codes: [id number] INP/OBS CARE (HIGH) Secondary Visit Codes: [id number] COUNSELING IND CIRO PEREZ Aug 16, 2024 12:34
--- NOTE | 2024-08-16 12:53 | DVH ---
INDICATION: low back pain TECHNIQUE: 2 views of the lumbar spine were obtained. COMPARISON: None FINDINGS: There are no acute fractures or subluxations. IMPRESSION: No acute fracture or subluxation.
--- NOTE | 2024-08-16 12:58 | DVH ---
CHEST RADIOGRAPH Indication: sob Technique: Single frontal view of the chest was obtained Comparison: None FINDINGS: The cardiac silhouette is unremarkable. The lungs demonstrate perihilar airspace opacities. The pulmo nary vasculature is mildly prominent. There is no pleural effusion.. There is no pneumothorax. IMPRESSION: As above
--- NOTE | 2024-08-16 13:07 | DVH ---
Procedure: XY SMALL BOWEL SERIES-W GASTROGRA Reason for study/Clinical History: r/o OBSTRUCTION Comparison Study: None Technique: Single contrast small bowel series performed. FINDINGS/IMPRESSION: Initial fisher hand line view of the abdomen and pelvis appears demonstrates no acute process. Contrast is identified within the colon by 2 hours. This represents a normal small bowel transit selena mejia
[2024-08-16] MEDS: PANTOPRAZOLE 40 MG/10 ML VIAL INJ IV SCH (13:18)
[2024-08-16] MEDS: ACCU-CHEK COMFORT CURVE STRIP VI SCH (17:00)
[2024-08-16 17:45] VITALS: BP 118/66; PULSE 100; RESP 20; TEMP 98.6; O2SAT 94
[2024-08-16 18:08] VITALS: BP 118/66; PULSE 100; RESP 20; TEMP 98.6; O2SAT 94
[2024-08-16] MEDS: InsuLIN REG 1unit/0.01ml Soln (100units/ml) SC SCH (18:55)
[2024-08-16] MEDS: DEXTROSE (50%) 50ML SYRG IV PRN (19:24)
[2024-08-16 20:00] VITALS: PULSE 111; RESP 20; O2SAT 95
[2024-08-16 21:00] VITALS: BP 108/60; PULSE 111; RESP 20; TEMP 100.1; O2SAT 91
[2024-08-16] MEDS: CYCLOBENZAPRINE HCL 10 MG TAB PO SCH (21:30)
[2024-08-16] MEDS: ACETAMINOPHEN 325 MG TAB PO PRN (21:34)
[2024-08-17] VITALS (9 sets, daily range): BP systolic 98–128; BP diastolic 45–82; PULSE 90–108; RESP 18–19; TEMP 98.4–100; O2SAT 93–99
[2024-08-17 05:31] LABS: Hematocrit 38.0 % (41.0-53.0); Hemoglobin 12.1 g/dL (13.5-17.5); Mean Corpuscular Hemoglobin 26.8 pg (28.0-32.0); Mean Corpuscular Volume 84.2 fL (80.0-100.0); Nucleated Red Blood Cells % 0.4 %
[2024-08-17] MEDS: LEVOTHYROXINE SODIUM 25 MCG TAB PO SCH (05:41)
[2024-08-17 05:48] LABS: Alanine Aminotransferase 29 U/L (7-40); Albumin 3.5 g/dL (3.2-4.8); Anion Gap 9 (5-15); BUN/Creatinine Ratio 7.9 (10.0-20.0); Bilirubin, Total 0.5 mg/dL (0.2-1.0); Blood Urea Nitrogen 9 mg/dL (9-23); Carbon Dioxide 26 mmol/L (20-31); Glucose 91 mg/dL (74-106); Total Protein 5.8 g/dL (5.7-8.2)
[2024-08-17 05:58] LABS: Alkaline Phosphatase 42 U/L (46-116); Calcium 8.4 mg/dL (8.7-10.4); Chloride 110 mmol/L (98-107); Potassium 3.4 mmol/L (3.5-5.1); Sodium 145 mmol/L (136-145)
[2024-08-17] MEDS ORDERED: LEVOTHYROXINE SODIUM 25 MCG TAB PO SCH (10:00)
[2024-08-17] MEDS: FENOFIBRATE 145 MG PO SCH (10:00)
[2024-08-17] MEDS: CHOLECALCIFEROL (VITD3) 1,000UNIT=25mCg TAB PO SCH (10:50)
[2024-08-17] MEDS: POTASSIUM CHLORIDE 20 MEQ, LIDOCAINE 1% (LOCAL ANESTH.) 2 ML in SODIUM CHL 0.9% 100 ML IV ONE (12:33)
[2024-08-17] MEDS ORDERED: IBUPROFEN 600 MG TAB PO PRN (12:45)
[2024-08-17] MEDS: LACTULOSE 20Gm/30ML SOLN PO SCH (12:45)
--- NOTE | 2024-08-17 13:03 | DVHPN2 ---
Subjective Date Seen: Aug 17, 2024 Post op day Post op day: 0 Objective Vitals Vital Sign Date Time Temp Pulse Resp B/P (MAP) Pulse Ox O2 Delivery O2 Flow Rate FiO2 08/17/24 09:00 98.7 102 18 98/45 (62) 97 98.7 08/17/24 08:30 Nasal Cannula* 2 28 Total Intake and Output 08/16/24 08/16/24 08/17/24 15:00 23:00 07:00 Intake Total 2000 ml 0 ml Balance 2000 ml 0 ml Medications Current Medications Medications Dose Ordered Sig/Amrit Route Start Time Stop Time Status Last Admin Dose Admin Sodium Chloride 1,000 ml @ 125 mls/hr Q8H IV 08/16/24 12:00 08/17/24 05:49 125 MLS/HR Diagnostic Test (Pha) 1 strip ACHS 08/16/24 17:00 08/17/24 11:31 1 STRIP Insulin Human Regular ACHS SC 08/16/24 17:00 Dextrose 50 ml UD PRN IV 08/16/24 12:00 08/16/24 19:24 50 ML Acetaminophen/ Hydrocodone Bitart 1 tab Q4HP PRN PO 08/16/24 12:00 Ondansetron HCl 4 mg Q4HP PRN IV 08/16/24 12:00 Acetaminophen 650 mg Q6HP PRN PO 08/16/24 12:00 08/17/24 05:45 650 MG Cholecalciferol 2,000 unit DAILY PO 08/17/24 10:00 08/17/24 10:50 2,000 UNIT Cyclobenzaprine HCl 10 mg BID PO 08/16/24 22:00 08/17/24 10:50 10 MG Patient Own Medication 145 mg DAILY PO 08/17/24 10:00 Levothyroxine Sodium 25 mcg DAILY@0600 PO 08/17/24 06:00 08/17/24 05:41 25 MCG Pantoprazole Sodium 40 mg DAILY IV 08/16/24 12:45 08/17/24 10:49 40 MG Polyethylene Glycol 17 gm DAILY PO 08/18/24 10:00 Lactulose 15 ml DAILY PO 08/17/24 12:45 Ibuprofen 600 mg Q8HP PRN PO 08/17/24 12:45 Labs and Microbiology Laboratory Tests 08/17/24 05:00 Test 08/17/24 05:00 Range/Units Serum Glucose 91 74-106 mg/dL Ass/Plan Labs and/or images reviewed: Image(s) reviewed by me Assessment/Plan review of small bowel follow through Initial metalsmith helper view of the abdomen and pelvis appears demonstrates no acute process. Contrast is identified within the colon by 2 hours. This represents a normal small bowel transit time. No bowel obstruction and patient had a BM Plan: start on clear liquids advance as tolerated , no surgical intervention needed at this time please recall if needed Plan discussed with Dr. Tyler Visit Coding Surgery Date of Service if different f: Aug 17, 2024 Billing Provider: FLY TYLER MD Surgery Visit Codes: [id number] INP/OBS CARE(HIGH) ROGELIO SMITH NP Aug 17, 2024 13:03
[2024-08-17] MEDS: POLYETHYLENE GLYCOL 17 GM PWDR PO ONE (13:34)
[2024-08-17] MEDS: METHYLNALTREXONE BROMIDE 12 MG/0.6 ML VIAL SC ONE (13:45)
[2024-08-17] MEDS: HYDROcodone-ACET 5/325MG TAB PO PRN (15:38)
--- NOTE | 2024-08-17 15:38 | DVHPNRES ---
Progress Note Date Seen: Aug 17, 2024 Resident Creating Document: MARGARET RILEY RESIDENT Has the PT tested + for MRSA If YES, has PT been informed?: No Medical Necessity Reason Pt with a Central, PICC or Fol: No Subjective Review of Systems This is a 44-year-old male with past medical history of Down syndrome, asthma, hyperlipidemia, arthritis, hypothyroidism, sleep apnea, chronic hematochezia, history of SBO, presented to the ED with chief complaint of abdominal pain and low back pain. Per mother, the patient was complaining of abdominal discomfort associated with moderate lower back pain. The mother stated that the pain has been going on for the last couple of weeks. The patient has a history of a MRI of the abdomen showing a mass with mesenteric lymph nodes performed at [facility], at that time they recommended to do an enteroscopy at [facility] but the mother stated that she took her son but stated abdominal imaging and they said that the procedure was not needed at that time. The patient is currently on continuous 2 L of oxygen through nasal cannula. The mother states that the patient had had recurrent bowel obstructions at least twice before with no surgery performed. 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 There were also mesentery with mild prominent mesenteric lymph nodes and hepatic steatosis. Surgery was consulted due to possible SBO, surgery recommended a small bowel series with Gastrografin which came back unremarkable. Chest x-ray and lumbar spine x-ray were both unremarkable as well. Patient was admitted for further assessment and management. Patient seen and examined at bedside. The mother states that the abdominal tenderness getting better but the patient still has lower back pain. When examined in the patient, the patient reports mild abdominal discomfort with mild lower back pain. Small bowel series with Gastrografin showing contrast passing all the way to the anus without showing any obstruction. Surgery recommended to start clear liquid diet. We will continue with pain medications and advanced the diet as tolerated. ROS unable to obtain due to patient down syndrome. Objective vital signs Vital Sign Date Time Temp Pulse Resp B/P (MAP) Pulse Ox O2 Delivery O2 Flow Rate FiO2 08/17/24 13:00 98.4 94 18 104/54 (71) 99 98.4 08/17/24 08:30 Nasal Cannula* 2 28 Total Intake and Output 08/16/24 08/16/24 08/17/24 15:00 23:00 07:00 Intake Total 2000 ml 0 ml Balance 2000 ml 0 ml medications Current Medications Medications Dose Ordered Sig/Amrit Route Start Time Stop Time Status Last Admin Dose Admin Sodium Chloride 1,000 ml @ 125 mls/hr Q8H IV 08/16/24 12:00 08/17/24 05:49 125 MLS/HR Diagnostic Test (Pha) 1 strip ACHS 08/16/24 17:00 08/17/24 11:31 1 STRIP Insulin Human Regular ACHS SC 08/16/24 17:00 Dextrose 50 ml UD PRN IV 08/16/24 12:00 08/16/24 19:24 50 ML Acetaminophen/ Hydrocodone Bitart 1 tab Q4HP PRN PO 08/16/24 12:00 Ondansetron HCl 4 mg Q4HP PRN IV 08/16/24 12:00 Acetaminophen 650 mg Q6HP PRN PO 08/16/24 12:00 08/17/24 05:45 650 MG Cholecalciferol 2,000 unit DAILY PO 08/17/24 10:00 08/17/24 10:50 2,000 UNIT Cyclobenzaprine HCl 10 mg BID PO 08/16/24 22:00 08/17/24 10:50 10 MG Patient Own Medication 145 mg DAILY PO 08/17/24 10:00 Levothyroxine Sodium 25 mcg DAILY@0600 PO 08/17/24 06:00 08/17/24 05:41 25 MCG Pantoprazole Sodium 40 mg DAILY IV 08/16/24 12:45 08/17/24 10:49 40 MG Polyethylene Glycol 17 gm DAILY PO 08/18/24 10:00 Lactulose 15 ml DAILY PO 08/17/24 12:45 Ibuprofen 600 mg Q8HP PRN PO 08/17/24 12:45 Examination Physical Examination General: Patient alert and oriented in person, place and time. Patient following commands. HEENT: Normocephalic, atraumatic, moist mucous membranes Respiratory/pulmonary: Clear lungs bilaterally, no associated crackles or wheezes. Cardiovascular: Normal heart sounds S1 and S2 with no associated murmurs Abdomen: Abdomen nondistended, there is mild to moderate tenderness to palpation at the periumbilical region. There is mild pain in the lower back. Extremities: There is no peripheral edema present at the lower extremities. Skin: No rashes or pruritus, there is no sacral edema present at this time. Neurological: Intact cranial nerves with no focal neurologic deficits laboratory and microbiology Laboratory Tests 08/17/24 05:00 Test 08/17/24 05:00 Range/Units Serum Glucose 91 74-106 mg/dL Problem List/Assessment/Plan Problem List/Assessment/Plan Assessment/plan Acute abdominal pain, R/O small bowel obstruction Acute constipation Possible underlying malignancy? (previous MRI with mass and mesenteric lymphnodes) Chronic lower back pain likely due to osteoarthritis and muscle spasms -CT of the abdomen showed dilated lupus wall bowel in the right lower quadrant measuring 3.5 cm with aneurysmal portion with sharp angulation and fecalization of internal contents. There was mesentery with mildly prominent mesenteric lymph nodes and hepatic steatosis. -surgery was consulted -small-bowel series with Gastrografin showed contrast passing without complications suggesting no obstruction at this time. -patient was initially NPO. Currently on clear liquid diet -we will progress diet as tolerated -start methylnatrexone bromide 8mg sc once -MiraLax 17 g orally daily -Ibuprophen 600 mg q.8 Hypokalemia -potassium was 3.4. Replace potassium -monitor electrolytes Goals of care discussed with the mother at bedside for >35min, full code Plan discussed with Dr. Reed Plan discussed with: Patient My Orders My Orders Orders - MARGARET RILEY Procedure Category Date Status Time Polyethylene Glycol PHA 08/18/24 In Process 17g Powder (Miralax 10:00 Lactulose Oral PHA 08/17/24 In Process 12:45 Ibuprofen Tablet PHA 08/17/24 In Process (Motrin Tablet) 12:45 Date of Service: Aug 17, 2024 Billing Provider: PENNY CLAY MD Common Visit Codes: [id number] INP/OBS CARE(HIGH) MARGARET RILEY RESIDENT Aug 17, 2024 15:37 PENNY CLAY MD Aug 27, 2024 02:42
[2024-08-17] MEDS: DOCUSATE SOD 100 MG CAP PO SCH (23:32)
[2024-08-18] VITALS (8 sets, daily range): BP systolic 105–127; BP diastolic 45–92; PULSE 84–99; RESP 17–20; TEMP 98.5–100.3; O2SAT 92–100
[2024-08-18 08:47] LABS: Carbon Dioxide 25 mmol/L (20-31)
[2024-08-18 08:52] LABS: BUN/Creatinine Ratio 5.1 (10.0-20.0); Glucose 87 mg/dL (74-106)
[2024-08-18 08:54] LABS: Blood Urea Nitrogen 5 mg/dL (9-23); Calcium 8.7 mg/dL (8.7-10.4); Chloride 108 mmol/L (98-107); Hematocrit 35.6 % (41.0-53.0); Hemoglobin 11.2 g/dL (13.5-17.5); Mean Corpuscular Hemoglobin 26.7 pg (28.0-32.0); Mean Corpuscular Volume 84.8 fL (80.0-100.0); Potassium 3.1 mmol/L (3.5-5.1)
[2024-08-18 08:55] LABS: Anion Gap 9 (5-15); Sodium 142 mmol/L (136-145)
[2024-08-18 09:24] LABS: Rapid Strep A Screen-Throat Positive
[2024-08-18 09:26] LABS: Total Cells Counted 100.0 (100)
[2024-08-18] MEDS: POLYETHYLENE GLYCOL 17 GM PWDR PO SCH (10:32)
--- NOTE | 2024-08-18 12:40 | DVHPNRES ---
Progress Note Date Seen: Aug 18, 2024 Resident Creating Document: MARGARET RILEY RESIDENT Has the PT tested + for MRSA If YES, has PT been informed?: No Medical Necessity Reason Pt with a Central, PICC or Fol: No Subjective Review of Systems This is a 44-year-old male with past medical history of Down syndrome, asthma, hyperlipidemia, arthritis, hypothyroidism, sleep apnea, chronic hematochezia, history of SBO, presented to the ED with chief complaint of abdominal pain and low back pain. Per mother, the patient was complaining of abdominal discomfort associated with moderate lower back pain. The mother stated that the pain has been going on for the last couple of weeks. The patient has a history of a MRI of the abdomen showing a mass with mesenteric lymph nodes performed at [place], at that time they recommended to do an enteroscopy at [facility] but the mother stated that she took her son but stated abdominal imaging and they said that the procedure was not needed at that time. The patient is currently on continuous 2 L of oxygen through nasal cannula. The mother states that the patient had had recurrent bowel obstructions at least twice before with no surgery performed. 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 There were also mesentery with mild prominent mesenteric lymph nodes and hepatic steatosis. Surgery was consulted due to possible SBO, surgery recommended a small bowel series with Gastrografin which came back unremarkable. Chest x-ray and lumbar spine x-ray were both unremarkable as well. Patient was admitted for further assessment and management. Patient seen and examined at bedside. Mother was present at bedside asking multiple questions and having multiple concerns. All of them were addressed. Patient had feverish overnight, we will start the patient on IV metronidazole and ceftriaxone. Patient is tolerating clear liquid diet without complications. We will progress to full liquid diet and progress as tolerated. Patient still has very minimal discomfort abdominal region and is currently complaining of lower back pain at the level of the hips. ROS unable to obtain due to patient down syndrome. Objective vital signs Vital Sign Date Time Temp Pulse Resp B/P (MAP) Pulse Ox O2 Delivery O2 Flow Rate FiO2 08/18/24 08:00 97 08/18/24 07:51 98.8 20 114/70 (85) 94 98.8 08/18/24 07:43 Nasal Cannula* 2 28 Total Intake and Output 08/17/24 08/17/24 08/18/24 15:00 23:00 07:00 Intake Total 600 ml 1925 ml Output Total 5 ml Balance 600 ml 1920 ml medications Current Medications Medications Dose Ordered Sig/Amrit Route Start Time Stop Time Status Last Admin Dose Admin Sodium Chloride 1,000 ml @ 125 mls/hr Q8H IV 08/16/24 12:00 08/18/24 01:18 125 MLS/HR Diagnostic Test (Pha) 1 strip ACHS 08/16/24 17:00 08/18/24 11:38 1 STRIP Insulin Human Regular ACHS SC 08/16/24 17:00 Dextrose 50 ml UD PRN IV 08/16/24 12:00 08/16/24 19:24 50 ML Acetaminophen/ Hydrocodone Bitart 1 tab Q4HP PRN PO 08/16/24 12:00 08/17/24 21:03 1 TAB Ondansetron HCl 4 mg Q4HP PRN IV 08/16/24 12:00 Acetaminophen 650 mg Q6HP PRN PO 08/16/24 12:00 08/17/24 23:32 650 MG Cholecalciferol 2,000 unit DAILY PO 08/17/24 10:00 08/18/24 10:31 2,000 UNIT Cyclobenzaprine HCl 10 mg BID PO 08/16/24 22:00 08/18/24 10:31 10 MG Patient Own Medication 145 mg DAILY PO 08/17/24 10:00 Levothyroxine Sodium 25 mcg DAILY@0600 PO 08/17/24 06:00 08/18/24 06:14 25 MCG Pantoprazole Sodium 40 mg DAILY IV 08/16/24 12:45 08/18/24 10:29 40 MG Polyethylene Glycol 17 gm DAILY PO 08/18/24 10:00 08/18/24 10:32 17 GM Lactulose 15 ml DAILY PO 08/17/24 12:45 Ibuprofen 600 mg Q8HP PRN PO 08/17/24 12:45 Docusate Sodium 100 mg BID PO 08/17/24 22:00 08/18/24 10:30 100 MG Metronidazole 100 ml @ 100 mls/hr Q8HR IV 08/18/24 14:00 UNV Ceftriaxone Sodium 50 ml @ 100 mls/hr DAILY@09 IV 08/18/24 12:30 UNV Examination Physical Examination General: Patient alert and oriented in person, place and time. Patient following commands. HEENT: Normocephalic, atraumatic, moist mucous membranes Respiratory/pulmonary: Clear lungs bilaterally, no associated crackles or wheezes. Cardiovascular: Normal heart sounds S1 and S2 with no associated murmurs Abdomen: Abdomen nondistended, there is mild tenderness to palpation at the periumbilical region. There is mild pain in the lower back. Extremities: There is no peripheral edema present at the lower extremities. Skin: No rashes or pruritus, there is no sacral edema present at this time. Neurological: Intact cranial nerves with no focal neurologic deficits laboratory and microbiology Laboratory Tests 08/18/24 05:50 Test 08/18/24 05:50 Range/Units Serum Glucose 87 74-106 mg/dL Problem List/Assessment/Plan Problem List/Assessment/Plan Assessment/plan Acute abdominal pain, R/O small bowel obstruction Acute constipation Possible underlying malignancy? (previous MRI with mass and mesenteric lymphnodes) Possible acute gastroenteritis Chronic lower back pain likely due to osteoarthritis and muscle spasms -CT of the abdomen showed dilated lupus wall bowel in the right lower quadrant measuring 3.5 cm with aneurysmal portion with sharp angulation and fecalization of internal contents. There was mesentery with mildly prominent mesenteric lymph nodes and hepatic steatosis. -surgery was consulted -small-bowel series with Gastrografin showed contrast passing without complications suggesting no obstruction at this time. -patient was initially NPO. Currently on clear liquid diet -we will progress diet as tolerated -Give methylnatrexone bromide 8mg sc once -MiraLax 17 g orally daily -Ibuprophen 600 mg q.8 -Start metronidazole IV -start IV ceftriaxone -ordered lactic acid Hypokalemia -potassium was 3.1. Replace potassium -monitor electrolytes Goals of care discussed with the mother at bedside for >35min, full code Plan discussed with Dr. Reed Plan discussed with: Patient, Other (mother) My Orders My Orders Orders - MARGARET RILEY RESIDENT Procedure Category Date Status Time Polyethylene Glycol PHA 08/18/24 In Process 17g Powder (Miralax 10:00 Lactulose Oral PHA 08/17/24 In Process 12:45 Ibuprofen Tablet PHA 08/17/24 In Process (Motrin Tablet) 12:45 Docusate Sodium PHA 08/17/24 In Process Capsule (Colace 22:00 Full Liq Diet DIET 08/18/24 Transmitted Lunch Lactic Acid W/ Reflex LAB 08/18/24 Logged Order 12:29 Metronidazole PHA 08/18/24 Logged 500mg/100ml (Flagyl 14:00 Ceftriaxone 1gm/50ml PHA 08/18/24 Logged D5w (Rocephin) 12:30 Dietary Evaluation Review Comments: 1) Continue stool softener and laxative PRN 2) Encourage optimal PO intake 3) Advance to 60g CCHO cardiac diet when medically feasible 4) Follow-up with gastroenterology 5) Continue to monitor I&O, labs, and skin integrity Expected Outcomes/Goals: 1) appetite and labs to improve 2) diet to advance 3) f/u in 3-5 days Date of Service: Aug 18, 2024 Billing Provider: PENNY CLAY MD Common Visit Codes: [id number] INP/OBS CARE(HIGH) MARGARET RILEY RESIDENT Aug 18, 2024 12:40 PENNY CLAY MD Aug 27, 2024 01:56
[2024-08-18] MEDS: POTASSIUM EFFERVESENT TAB 25 MEQ PO ONE (12:55)
[2024-08-18] MEDS: cefTRIAXone 1GM/50ML D5W 50 ML IV SCH (12:55)
[2024-08-19] VITALS (8 sets, daily range): BP systolic 91–123; BP diastolic 38–71; PULSE 68–93; RESP 17–19; TEMP 98–99.5; O2SAT 94–99
--- NOTE | 2024-08-19 04:52 | DVH ---
EXAM: CT CT AB PEL WITH IV CON ONLY HISTORY: BUN 0.99 COMPARISON: CT AB PEL WITH IV CON ONLY on DOS: 12/14/21 TECHNIQUE: Helical CT images of the abdomen and pelvis were performed with 100 mL omnipaque 300 IV c ontrast. Sagittal and coronal reformatted images were obtained. This CT exam was performed using 1 or more of the following dose reduction techniques: Automated exposure control, adjustment of the mA an d/or kv according to patient size, or the use of iterative reconstruction techniques. Radiation Dose Information: CT Dose: CTDI volume is 16.57 mGy. Dose-length product is 1013.89 mGy*cm FINDINGS: CT abdomen: There is bilateral lower lobe scarring versus atelectasis. There is peribronchial thicke gaye in the lung bases. The heart is not enlarged. There is a trace pericardial effusion. The liver i s diffusely heterogeneous low attenuation. There is free fluid in the upper abdomen, greatest adjace nt to the duodenum and gallbladder. The spleen, gallbladder, pancreas, kidneys, and adrenal glands ar e unremarkable. No abdominal aortic aneurysm or dissection. CT pelvis: No abnormal bowel dilatation, free air, or free fluid. The cecum and appendix are atypical ly located in the right upper quadrant. There are mildly prominent lymph nodes in the central mesente denzel fat. The appendix is not dilated. The urinary bladder is unremarkable. IMPRESSION: 1. Reactive airways disease and scarring versus atelectasis in the lung bases. 2. Diffuse heterogeneous low-attenuation of the liver consistent with hepatic steatosis. 3. Upper abdominal fluid, greatest about the duodenum and gallbladder. Correlate for possible cholec ystitis and/or duodenitis. Right upper quadrant ultrasound may be warranted. 4. No evidence of bowel obstruction, acute appendicitis, or other acute process in the abdomen or pel vis.
[2024-08-19 07:23] LABS: Hematocrit 34.7 % (41.0-53.0); Hemoglobin 11.4 g/dL (13.5-17.5); Mean Corpuscular Hemoglobin 27.3 pg (28.0-32.0); Mean Corpuscular Volume 83.2 fL (80.0-100.0); Nucleated Red Blood Cells % 0.3 %
[2024-08-19 07:31] LABS: Sodium 143 mmol/L (136-145)
[2024-08-19 07:32] LABS: Anion Gap 10 (5-15); Carbon Dioxide 25 mmol/L (20-31)
[2024-08-19 07:37] LABS: Glucose 96 mg/dL (74-106)
[2024-08-19 07:39] LABS: BUN/Creatinine Ratio 5.2 (10.0-20.0); Blood Urea Nitrogen < 5 mg/dL (9-23); Calcium 8.6 mg/dL (8.7-10.4); Chloride 108 mmol/L (98-107); Potassium 3.1 mmol/L (3.5-5.1)
[2024-08-19] MEDS: IOHEXOL 300 MG/ML 100ML BOTTLE IJ ONE (08:03)
[2024-08-19] MEDS: POTASSIUM CHL 20 Meq TABLET PO ONE (13:09)
[2024-08-19] MEDS ORDERED: POLY335015 PO (16:01)
[2024-08-19] MEDS ORDERED: ACET-1304 PO (16:01)
[2024-08-19] MEDS ORDERED: DOCU-94 PO (16:01)
[2024-08-19] MEDS ORDERED: AUG875T PO (16:01)
[2024-08-19] MEDS ORDERED: DICY10CA PO (16:01)
--- NOTE | 2024-08-19 16:24 | DVHDSRES ---
Discharge Summary Date of Admission Resident Creating Document: MARGARET RILEY RESIDENT Aug 16, 2024 at 11:54 Date of Discharge: Aug 19, 2024 Labs/Diagnostic Data: Laboratory Results Test 08/19/24 12:49 08/19/24 05:31 08/18/24 12:50 08/18/24 05:50 POC Glucose 117 mg/dl (70-106) White Blood Count 2.7 10^3/uL (4.4-10.8) Red Blood Count 4.18 10^6/uL (4.5-5.90) Hemoglobin 11.4 g/dL (13.5-17.5) Hematocrit 34.7 % (41.0-53.0) Mean Corpuscular Volume 83.2 fL (80.0-100.0) Mean Corpuscular Hemoglobin 27.3 pg (28.0-32.0) Mean Corpuscular Hemoglobin Concent 32.8 g/dL (32.0-36.0) Red Cell Distribution Width 22.9 % (11.8-14.3) Platelet Count 188 10^3/uL (140-450) Mean Platelet Volume 7.4 fL (6.9-10.8) Neutrophils (%) (Auto) 47.8 % (37.0-80.0) Lymphocytes (%) (Auto) 36.1 % (10.0-50.0) Monocytes (%) (Auto) 14.2 % (0.0-12.0) Eosinophils (%) (Auto) 0.7 % (0.0-7.0) Basophils (%) (Auto) 1.2 % (0.0-2.0) Neutrophils # (Auto) 1.3 10 ^3/uL (1.6-8.6) Lymphocytes # (Auto) 1.0 10 ^3/uL (0.4-5.4) Monocytes # (Auto) 0.4 10 ^3/uL (0-1.3) Eosinophils # (Auto) 0 10 ^3/uL (0-0.8) Basophils # (Auto) 0 10 ^3/uL (0-0.2) Nucleated Red Blood Cells 0.3 % Sodium Level 143 mmol/L (136-145) Potassium Level 3.1 mmol/L (3.5-5.1) Chloride Level 108 mmol/L (98-107) Carbon Dioxide Level 25 mmol/L (20-31) Anion Gap 10 (5-15) Blood Urea Nitrogen < 5 mg/dL (9-23) Creatinine 0.96 mg/dL (0.700-1.30) Glomerular Filtration Rate Calc 101 mL/min (>90) BUN/Creatinine Ratio 5.2 (10.0-20.0) Serum Glucose 96 mg/dL (74-106) Calcium Level 8.6 mg/dL (8.7-10.4) Lactic Acid Level 1.0 mmol/L (0.4-2.0) Differential Total Cells Counted 100.0 (100) Neutrophils % (Manual) 69 (37.0-80.0) Band Neutrophils % (Manual) 4 Lymphocytes % (Manual) 18 (10.0-50.0) Monocytes % (Manual) 9 (0-12) Eosinophils % (Manual) 0 (0-7) Basophils % (Manual) 0 (0.0-2.0) Metamyelocytes % (manual) 0 Myelocytes % (Manual) 0 Promyelocytes % (Manual) 0 Blast Cells % (Manual) 0 Reactive Lymphocytes 0 Platelet Estimate Adequate Group A Streptococcus Rapid Positive Test 08/17/24 05:00 08/16/24 13:32 08/16/24 09:33 08/15/24 22:01 Total Bilirubin 0.5 mg/dL (0.2-1.0) Aspartate Amino Transferase (AST) 38 U/L (13-40) Alanine Aminotransferase (ALT) 29 U/L (7-40) Alkaline Phosphatase 42 U/L (46-116) Total Protein 5.8 g/dL (5.7-8.2) Albumin 3.5 g/dL (3.2-4.8) Hemoglobin A1c 6.1 % A1C (<5.7) Prothrombin Time 12.2 sec (9.3-11.8) Prothrombin Time INR 1.17 (0.9-1.15) Activated Partial Thromboplast Time 28.1 SEC (24.5-34.5) Urine Color Yellow (Yellow) Urine Clarity Clear (Clear) Urine pH 6.0 (5.0-9.0) Urine Specific Dixon 1.034 (1.001-1.035) Urine Protein Trace (Negative) Urine Ketones Negative (Negative) Urine Blood Negative /uL (Negative) Urine Nitrite Negative (Negative) Urine Bilirubin Negative (Negative) Urine Urobilinogen Normal mg/dL (Negative) Urine Leukocyte Esterase Negative /uL (Negative) Urine RBC 3 /hpf (0 - 3) Urine Microscopic WBC < 1 /HPF (0-3) Urine Squamous Epithelial Cells Few /hpf (<5) Urine Calcium Oxalate Crystals Few (None Seen) Urine Bacteria Few /hpf (None Seen) Urine Mucus Few (None Seen) Urine Glucose Normal mg/dL (Normal) Other Laboratory Tests 08/19/24 05:31 Brief Hx & Hospital Course: The patient is a 44-year-old male with Down syndrome and multiple chronic medical conditions who presented with abdominal pain and lower back pain. Per mother, the abdominal discomfort had been persistent for 2 weeks and was associated with intermittent constipation and low back pain. Initial evaluation revealed a CT abdomen without contrast showing a dilated loop of small bowel in the RLQ measuring 3.5 cm with sharp angulation and fecalization, raising concern for intermittent partial SBO. A small bowel follow-through study with Gastrografin demonstrated normal bowel transit, and the obstruction was ruled out. The patient was admitted for observation, bowel regimen, and pain control. A clear liquid diet was initiated and gradually advanced as tolerated. He had a bowel movement during the hospital stay and tolerated oral intake well. CT abdomen/pelvis with contrast showed no obstruction or acute abdominal pathology but confirmed hepatic steatosis and mild mesenteric lymphadenopathy. His back pain was musculoskeletal and responded to conservative measures. He remained afebrile, and blood cultures and MRSA screening were negative. No signs of systemic infection were found. Labs showed stable hemoglobin (11.4) and hematocrit, no leukocytosis, and normal renal function. Potassium (3.1) was repleted and normalized. He remained hemodynamically stable and with oxygen saturations consistently above 95%. Consults/Reason for consult General Surgery: Abdominal Pain Suspected Partial SBO, lymphadenopathy Operations or Procedures PATIENT: JIM NGUYỄN RACCT: [id number] UNIT: [id number] : 1980 LOC: [facility] ROOM / BED: [id number] / A AGE / SEX: 44 / M ADM STATUS: ADM IN SERVICE 42 ORDERING PHYSICIAN: VALENTINO VOSS MD PROCEDURE(s): ABPLIV - CT AB PEL WITH IV CON ONLY REASON: BUN 0.99 ORDER NUMBER(s): [id number], ACCESSION NUMBER(s): [id number] EXAM: CT CT AB PEL WITH IV CON ONLY HISTORY: BUN 0.99 COMPARISON: CT AB PEL WITH IV CON ONLY on DOS: 12/14/21 TECHNIQUE: Helical CT images of the abdomen and pelvis were performed with 100 mL omnipaque 300 IV contrast. Sagittal and coronal reformatted images were obtained. This CT exam was performed using 1 or more of the following dose reduction techniques: Automated exposure control, adjustment of the mA and/or kv according to patient size, or the use of iterative reconstruction techniques. Radiation Dose Information: CT Dose: CTDI volume is 16.57 mGy. Dose-length product is 1013.89 mGy*cm FINDINGS: CT abdomen: There is bilateral lower lobe scarring versus atelectasis. There is peribronchial thickening in the lung bases. The heart is not enlarged. There is a trace pericardial effusion. The liver is diffusely heterogeneous low attenuation. There is free fluid in the upper abdomen, greatest adjacent to the duodenum and gallbladder. The spleen, gallbladder, pancreas, kidneys, and adrenal glands are unremarkable. No abdominal aortic aneurysm or dissection. CT pelvis: No abnormal bowel dilatation, free air, or free fluid. The cecum and appendix are atypically located in the right upper quadrant. There are mildly prominent lymph nodes in the central mesenteric fat. The appendix is not dilated. The urinary bladder is unremarkable. IMPRESSION: 1. Reactive airways disease and scarring versus atelectasis in the lung bases. 2. Diffuse heterogeneous low-attenuation of the liver consistent with hepatic steatosis. 3. Upper abdominal fluid, greatest about the duodenum and gallbladder. Correlate for possible cholecystitis and/or duodenitis. Right upper quadrant ultrasound may be warranted. 4. No evidence of bowel obstruction, acute appendicitis, or other acute process in the abdomen or pelvis. ATED BY: SOHEILA JADE MD DICTATED DATE/TIME: 08/19/24448 SIGNED BY: SOHEILA JADE MD SIGNED DATE/TIME: 08/19/24448 CC: PATIENT: JIM NGUYỄN RACCT: [id number] UNIT: [id number] : 1980 LOC: [facility] ROOM / BED: [address] [place] [address] / A AGE / SEX: 44 / M ADM STATUS: ADM IN SERVICE 1221 ORDERING PHYSICIAN: CIRO PEREZ PROCEDURE(s): CXR1 - CHEST XRAY 1 VIEW REASON: sob ORDER NUMBER(s): [id number], ACCESSION NUMBER(s): [id number] CHEST RADIOGRAPH Indication: sob Technique: Single frontal view of the chest was obtained Comparison: None FINDINGS: The cardiac silhouette is unremarkable. The lungs demonstrate perihilar airspace opacities. The pulmonary vasculature is mildly prominent. There is no pleural effusion.. There is no pneumothorax. IMPRESSION: As above ATED BY: LEELEE HARDING MD DICTATED DATE/TIME: 08/16/24 1256 SIGNED BY: LEELEE HARDING MD SIGNED DATE/TIME: 08/16/24 1256 CC: PATIENT: JIM NGUYỄN RACCT: [id number] UNIT: [id number] : 1980 LOC: [facility] ROOM / BED: [address] [place] [address] A AGE / SEX: 44 / M ADM STATUS: ADM IN SERVICE 1154 ORDERING PHYSICIAN: CIRO PEREZ FORKLIFT TRUCK MECHANIC PROCEDURE(s): LUMB2 - LUMBAR SPINE 3 VIEW REASON: low back pain ORDER NUMBER(s): [id number], ACCESSION NUMBER(s): [id number] INDICATION: low back pain TECHNIQUE: 2 views of the lumbar spine were obtained. COMPARISON: None FINDINGS: There are no acute fractures or subluxations. IMPRESSION: No acute fracture or subluxation. ATED BY: LEONARD ALCANTARA MD DICTATED DATE/TIME: 08/16/24 1251 SIGNED BY: LEONARD ALCANTARA MD SIGNED DATE/TIME: 08/16/24 1251 CC: PATIENT: JIM NGUYỄN RACCT: [id number] UNIT: [id number] : 1980 [facility]GE / SEX: 44 / M ADM STATUS: ADM IN SERVICE 0823 ORDERING PHYSICIAN: ROGELIO SMITH NP PROCEDURE(s): SMBG - SMALL BOWEL SERIES-W GASTROGRA REASON: r/o OBSTRUCTION ORDER NUMBER(s): [id number], ACCESSION NUMBER(s): [id number] Procedure: XY SMALL BOWEL SERIES-W GASTROGRA Reason for study/Clinical History: r/o OBSTRUCTION Comparison Study: None Technique: Single contrast small bowel series performed. 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 Contrast is identified within the colon by 2 hours. This represents a normal small bowel transit time. ATED BY: LEONARD ALCANTARA MD DICTATED DATE/TIME: 08/16/24 130 SIGNED BY: LEONARD ALCANTARA MD SIGNED DATE/TIME: 08/16/24 130 CC: PATIENT: JIM NGUYỄN RACCT: [id number] UNIT: [id number] : 1980 LOC: ER ROOM / BED: / AGE / SEX: 44 / M ADM STATUS: REG ER SERVICE 9168 ORDERING PHYSICIAN: DANA CHAMBERS MD PROCEDURE(s): ABPL - CT AB PEL WO CON-NO ORAL OR IV REASON: lower abdominal and back pain ORDER NUMBER(s): [id number], ACCESSION NUMBER(s): [id number] Exam: CT CT AB PEL WO CON-NO ORAL OR IV History: lower abdominal and back pain Comparison Study: CT CT AB PEL WO CON-NO ORAL OR IV on DOS: 07/11/24, GIWAG on DOS: 08/20/21, CT ABD PELVIS WO CONTRAST on DOS: 08/15/21 TECHNIQUE: Multidetector CT of the abdomen and pelvis was performed from lung bases to pubic symphysis. Imaging was performed without IV contrast. Axial, coronal and sagittal multiplanar reformats were obtained from the axial data set by the technologist. Radiation optimization: All CT scans at this facility use at least one of these dose optimization techniques: automated exposure control mA and/or kV adjustment per patient size (includes targeted exams where dose is matched to clinical indication) or iterative reconstruction. Radiation Dose Information: CT Dose: CTDI volume is 14.9 mGy. Dose-length product is 889 mGy*cm FINDINGS: Evaluation of solid organs is limited due to lack of intravenous contrast use. Imaged portions of the lung bases demonstrate subsegmental atelectasis. There is a small hiatal hernia. There is diffuse hepatic steatosis. Gallbladder, spleen, adrenal glands, pancreas, and kidneys appear unremarkable. No evidence of bowel obstruction. Single abnormal appearing dilated loop of small bowel in the right lower quadrant measuring 3.5 cm with a aneurysmal portion with sharp angulation and fecalization of internal contents. Mildly prominent mesenteric lymph nodes measuring up to 0.6 cm in short axis with lorena mesentery. No free fluid, free air, or adenopathy. No suspicious osseous lesion. IMPRESSION: 1. Single abnormal appearing dilated loop of small bowel in the right lower quadrant measuring 3.5 cm with a aneurysmal portion with sharp angulation and fecalization of internal contents. Consider small-bowel follow-through or CT enterography for further evaluation. 2. Lorena mesentery with mildly prominent mesenteric lymph nodes, nonspecific. Short-term follow-up is recommended. 3. Lobulated appearance of the liver with hepatic steatosis. Correlation with lFTs is recommended. ATED BY: EMILY PENA MD DICTATED DATE/TIME: 08/16/24354 SIGNED BY: EMILY PENA MD SIGNED DATE/TIME: 08/16/24354 CC: Condition at Discharge: Stable Final Diagnosis/Problems List Primary: Abdominal pain resolved, no active SBO Secondary: Chronic constipation Down syndrome Obstructive sleep apnea Asthma Hypothyroidism Hyperlipidemia Chronic mild anemia Mechanical low back pain Lorena mesentery with mesenteric lymphadenopathy, possible malignancy Hepatic steatosis (NAFLD suspected) Discharge Disposition: Home Discharge Instruct/Medications Diet: See Comment Diet comment: Continue soft mechanical diet for 35 days, then advance to regular as tolerated Activity: No Restrictions, As Tolerated Follow Up/Referral: Primary Care Physician (PCP) * Within 35 days of discharge * For review of imaging, liver steatosis, labs, and medication adjustment * Request LFT panel and full metabolic panel * Date: August 24, 2024 Gastroenterology * Within 23 weeks * For evaluation of hepatic steatosis and lorena mesentery with prominent lymph nodes * Request liver ultrasound and further work-up Outpatient Imaging Follow-Up * Repeat CT abdomen with contrast or MRI enterography in 3 months if symptoms recur Medications: Dicyclomine (Bentyl) 10 mg PO BID PRN * For abdominal spasms * Take before meals and at bedtime Amoxicillin-Clavulanate (Augmentin) 875 mg/125 mg PO BID x7 days * For empiric GI tract bacterial coverage * Finish entire course Acetaminophen (Tylenol) 500 mg PO Q6H PRN mild pain * Max 3 g/day * Avoid doubling with Ridott Hydrocodone/Acetaminophen (Ridott) 5/325 mg PO Q6H PRN moderate to severe pain * Limit to =4 doses/day * Use only if pain not controlled with Tylenol Polyethylene Glycol (MiraLAX) 17 g PO daily * For constipation * Mix in water or juice Docusate Sodium (Colace) 100 mg PO BID * Stool softener New Medications: Acetaminophen (Tylenol Extra Strength) 500 Mg Tab 500 MG PO Q6HP PRN for 10 Days, #40 TAB Amoxicillin & Pot Clavulanate (Augmentin Tablet) 875 Mg Tb 875 MG PO BID for 7 Days, #14 TAB Dicyclomine Hcl (Bentyl Capsule) 10 Mg Cp 10 MG PO BID for 14 Days, #28 CAP Docusate Sodium (Colace) 100 Mg Cap 100 MG PO BID for 14 Days, #28 CAP Polyethylene Glycol 3350 (Miralax) 17 Gm Pow 17 GM PO DAILY for 14 Days, #14 POW Continued Medications: Amoxicillin Trihydrate (Amoxicillin) 500 Mg Cap 1 CAP PO BID for 10 Days, #20 CAP Cephalexin (Keflex Capsule) 250 Mg Cp 400 MG PO QID Cholecalciferol (Vitamin D3) 2,000 Unit Tab 1 TAB PO DAILY, #30 TAB 5 Refills Ciprofloxacin Hcl (Cipro) 500 Mg Tab 500 MG PO BID for 7 Days, #14 TAB Cyclobenzaprine Hcl (Cyclobenzaprine Hcl) 7.5 Mg Tab 10 MG PO BID, TAB Fenofibrate (Tricor) 145 Mg Tab 145 MG PO DAILY, TAB Ferrous Sulfate (Ferrous Sulfate) 324 Mg Tab 1 TAB PO DAILY Levofloxacin (Levaquin) 500 Mg Tab 500 MG PO DAILY PRN, #30 TAB Levothyroxine Sodium (Synthroid) 25 Mcg Tab 1 TAB PO DAILY, #30 TAB 5 Refills Loratadine (Claritin) 10 Mg Tab 1 TAB PO DAILY, #30 TAB 5 Refills Metronidazole (Flagyl) 500 Mg Tab 500 MG PO TID, #21 TAB Metronidazole (Flagyl) 500 Mg Tab 1 TAB PO TID for 7 Days, #21 TAB Pantoprazole Sodium Sesquihydr (Protonix) 40 Mg Tab 40 MG PO DAILY, #30 TAB Care Plan: Discharge Plan and Management: * Resume normal activities as tolerated * Continue soft mechanical diet for 35 days, then advance to regular as tolerated * Continue bowel regimen daily * Monitor bowel movements daily * Avoid NSAIDs unless cleared by PCP * Use Tylenol and Ridott as prescribed * Follow-up for hepatic steatosis and lymphadenopathy as outpatient with LFTs and imaging Scheduled Amoxicillin & Pot Clavulanate (Augmentin Tablet), 875 MG PO BID Amoxicillin Trihydrate (Amoxicillin), 1 CAP PO BID Cephalexin (Keflex Capsule), 400 MG PO QID, (Reported) Cholecalciferol (Vitamin D3), 1 TAB PO DAILY, (Reported) Ciprofloxacin Hcl (Cipro), 500 MG PO BID Cyclobenzaprine Hcl (Cyclobenzaprine Hcl), 10 MG PO BID, (Reported) Dicyclomine Hcl (Bentyl Capsule), 10 MG PO BID Docusate Sodium (Colace), 100 MG PO BID Fenofibrate (Tricor), 145 MG PO DAILY, (Reported) Ferrous Sulfate (Ferrous Sulfate), 1 TAB PO DAILY, (Reported) Levothyroxine Sodium (Synthroid), 1 TAB PO DAILY, (Reported) Loratadine (Claritin), 1 TAB PO DAILY, (Reported) Metronidazole (Flagyl), 500 MG PO TID Metronidazole (Flagyl), 1 TAB PO TID Pantoprazole Sodium Sesquihydr (Protonix), 40 MG PO DAILY, (Reported) Polyethylene Glycol 3350 (Miralax), 17 GM PO DAILY Scheduled PRN Acetaminophen (Tylenol Extra Strength), 500 MG PO Q6HP PRN Levofloxacin (Levaquin), 500 MG PO DAILY PRN Discharge Statement: "Patient was advised to return to the ER or call 911 if any headaches, dizziness, shortness of breath, chest pain, abdominal pain, bleeding, fevers, or worsening of medical condition. Patient was counseled about treatment plan, medications, possible side effects, patientverbalized understanding. All questions were answered to the best of my ability. This discharge took greater then 30 minutes in planning, reviewing documentation, counseling the patient, and discussing with other team members." ASSESSMENT ASSESSMENT Assessment Primary: Abdominal pain resolved, no active SBO Secondary: Chronic constipation Down syndrome Obstructive sleep apnea Asthma Hypothyroidism Hyperlipidemia Chronic mild anemia Mechanical low back pain Lorena mesentery with mesenteric lymphadenopathy, possible malignancy Hepatic steatosis (NAFLD suspected) ALAN BRANTLEY RESIDENT Aug 19, 2024 16:24
[2024-08-19] MEDS ORDERED: VANCOMYCIN PER PHARMACY 0 MG IV SCH (16:45)
--- NOTE | 2024-08-19 16:59 | DVHPNRES ---
Progress Note Date Seen: Aug 19, 2024 Resident Creating Document: ALAN BRANTLEY RESIDENT Has the PT tested + for MRSA If YES, has PT been informed?: No Medical Necessity Reason Pt with a Central, PICC or Fol: No Subjective Review of Systems This is a 44-year-old male with past medical history of Down syndrome, asthma, hyperlipidemia, arthritis, hypothyroidism, sleep apnea, chronic hematochezia, history of SBO, presented to the ED with chief complaint of abdominal pain and low back pain. Per mother, the patient was complaining of abdominal discomfort associated with moderate lower back pain. The mother stated that the pain has been going on for the last couple of weeks. The patient has a history of a MRI of the abdomen showing a mass with mesenteric lymph nodes performed at [place], at that time they recommended to do an enteroscopy at [facility] but the mother stated that she took her son but stated abdominal imaging and they said that the procedure was not needed at that time. The patient is currently on continuous 2 L of oxygen through nasal cannula. The mother states that the patient had had recurrent bowel obstructions at least twice before with no surgery performed. 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 There were also mesentery with mild prominent mesenteric lymph nodes and hepatic steatosis. Surgery was consulted due to possible SBO, surgery recommended a small bowel series with Gastrografin which came back unremarkable. Chest x-ray and lumbar spine x-ray were both unremarkable as well. Patient was admitted for further assessment and management. Patient seen and examined at bedside. Mother was present at bedside asking multiple questions and having multiple concerns. All of them were addressed. Patient had feverish overnight, we will start the patient on IV metronidazole and ceftriaxone. Patient is tolerating clear liquid diet without complications. We will progress to full liquid diet and progress as tolerated. Patient still has very minimal discomfort abdominal region and is currently complaining of lower back pain at the level of the hips. 08/19/24 The patient is a 44-year-old male with Down syndrome, chronic constipation, hypothyroidism, hyperlipidemia, asthma, MONTY, and prior SBO evaluation, who was initially stabilized for discharge. However, over the past 1218 hours, the patient has developed progressively worsening hypotension with systolic BP consistently <90 mmHg and sometimes dropping into the 80s, diastolic BP falling below 6050s, without evidence of volume overload . He is alert and interactive per baseline, but more lethargic today. Family reports decreased oral intake since last night, and he has had only 1 bowel movement over the last 24 hours. He is tolerating clear liquids but has reduced appetite. Due to unstable BP, the team has decided not to discharge today. Midodrine 10 mg PO TID has been initiated to support BP. Blood cultures have been re-ordered to rule out occult infection. Due to concern for early sepsis or undetected GI translocation, empiric broad-spectrum antibiotics have been started: * Vancomycin IV * Cefepime IV * Metronidazole IV No fevers, but leukocytosis and subtle decline in clinical picture raise concern. Review of Systems (ROS): * Was not obtained due to down's syndrome. Objective vital signs Vital Sign Date Time Temp Pulse Resp B/P (MAP) Pulse Ox O2 Delivery O2 Flow Rate FiO2 08/19/24 12:34 98.0 83 18 101/71 (81) 95 98.0 08/19/24 08:00 Nasal Cannula* 2 28 Total Intake and Output 08/18/24 08/18/24 08/19/24 15:00 23:00 07:00 Intake Total 50 ml 1960 ml 1500 ml Output Total 800 ml Balance 50 ml 1160 ml 1500 ml medications Current Medications Medications Dose Ordered Sig/Amrit Route Start Time Stop Time Status Last Admin Dose Admin Sodium Chloride 1,000 ml @ 125 mls/hr Q8H IV 08/16/24 12:00 08/19/24 13:13 125 MLS/HR Diagnostic Test (Pha) 1 strip ACHS 08/16/24 17:00 08/19/24 06:30 1 STRIP Insulin Human Regular ACHS SC 08/16/24 17:00 Dextrose 50 ml UD PRN IV 08/16/24 12:00 08/16/24 19:24 50 ML Acetaminophen/ Hydrocodone Bitart 1 tab Q4HP PRN PO 08/16/24 12:00 08/17/24 21:03 1 TAB Ondansetron HCl 4 mg Q4HP PRN IV 08/16/24 12:00 Acetaminophen 650 mg Q6HP PRN PO 08/16/24 12:00 08/17/24 23:32 650 MG Cholecalciferol 2,000 unit DAILY PO 08/17/24 10:00 08/19/24 09:11 2,000 UNIT Cyclobenzaprine HCl 10 mg BID PO 08/16/24 22:00 08/19/24 09:11 10 MG Patient Own Medication 145 mg DAILY PO 08/17/24 10:00 Levothyroxine Sodium 25 mcg DAILY@0600 PO 08/17/24 06:00 08/19/24 05:44 25 MCG Pantoprazole Sodium 40 mg DAILY IV 08/16/24 12:45 08/19/24 09:10 40 MG Polyethylene Glycol 17 gm DAILY PO 08/18/24 10:00 08/19/24 09:10 17 GM Lactulose 15 ml DAILY PO 08/17/24 12:45 Ibuprofen 600 mg Q8HP PRN PO 08/17/24 12:45 Docusate Sodium 100 mg BID PO 08/17/24 22:00 08/19/24 09:10 100 MG Metronidazole 100 ml @ 100 mls/hr Q8HR IV 08/18/24 14:00 08/19/24 13:42 100 MLS/HR Ceftriaxone Sodium 50 ml @ 100 mls/hr DAILY@09 IV 08/18/24 12:30 08/19/24 09:08 100 MLS/HR Examination Physical Examination General: Patient alert and oriented in person, place and time. Patient following commands. HEENT: Normocephalic, atraumatic, moist mucous membranes Respiratory/pulmonary: Clear lungs bilaterally, no associated crackles or wheezes. Cardiovascular: Normal heart sounds S1 and S2 with no associated murmurs Abdomen: Abdomen nondistended, there is mild tenderness to palpation at the periumbilical region. There is mild pain in the lower back. Extremities: There is no peripheral edema present at the lower extremities. Skin: No rashes or pruritus, there is no sacral edema present at this time. Neurological: Intact cranial nerves with no focal neurologic deficits laboratory and microbiology Laboratory Tests 08/19/24 05:31 Test 08/19/24 05:31 Range/Units Serum Glucose 96 74-106 mg/dL Microbiology Date/Time Source Procedure Growth Status 08/18/24 05:50 Blood Blood Culture - Preliminary NO GROWTH AFTER 24 HOURS OF INCUBATION. Resulted 08/17/24 04:40 Nose MRSA Screen - Final Complete Problem List/Assessment/Plan Problem List/Assessment/Plan Sepsis, early suspected source gastrointestinal * Downward BP trend * Mild leukocytosis and possible gut translocation * Patient already on PO diet, possible subclinical intra-abdominal infection * No fever or overt clinical signs * Awaiting blood culture results * Elevated risk due to immunocompromised state from Down syndrome and poor gut motility 2. Hypotension persistent, multifactorial * Possibly related to dehydration, sepsis, autonomic dysfunction * Refractory to oral hydration * Initiated Midodrine 10 mg PO TID 3. Abdominal pain, constipation, SBO ruled out * No obstruction on CT or Gastrografin follow-through * Now passing stool, tolerating liquids * Mild discomfort still present * Continue bowel regimen 4. Chronic anemia likely multifactorial (OTIS + ACD) * Stable Hgb (11.4), no transfusion needed * Monitor for trend with ongoing infection 5. Hepatic steatosis incidental, likely NAFLD * Identified on both CTs * LFTs pending * Plan outpatient follow-up 6. Developmental delay / Down syndrome * Continue supportive care * Close monitoring, avoid overstimulation or unnecessary testing Treatment Plan (System-flores): Infectious Disease: * Start Vancomycin IV (per pharmacy dosing) * Start Cefepime IV 2 g q8h * Start Metronidazole IV 100 mg q8h * Obtain repeat blood cultures x2 from 2 different sites * Daily CBC, CMP, * Monitor temperature q4h Cardiovascular: * Start Midodrine 10 mg PO TID for BP support * Hold antihypertensives if any were restarted * Monitor BP every 2 hours * Consider NS 500 mL IV bolus if BP <85 systolic and MAP <65 (PRN order) * Strict I/Os * Trend orthostatic vitals Neuro: * Monitor for worsening lethargy * Reorient patient if confusion occurs * Maintain room lighting and family support GI / Nutrition: * advance to soft mechanical at this time * Resume bowel regimen: * MiraLAX 17 g PO QDay * Colace 100 mg PO BID Hematologic: * Monitor Hgb, Plt, WBC trends * Consider iron panel, retic count if anemia worsens MSK / Pain: * [place] and Tylenol PRN * Prophylaxis: * DVT prophylaxis: SCD * GI prophylaxis: * Pantoprazole 40 mg IV QDay * Skin care: Daily checks for pressure ulcers * Fall precautions due to hypotension and developmental delay FULL CODE STATUS, CASE DISCUSSED WITH ATTENDING PHYSICIAN, RN and patient's mother. Plan discussed with: Other (Mother) My Orders My Orders Orders - ALAN BRANTLEY RESIDENT Procedure Category Date Status Time Cefepime 2gm Extended PHA 08/19/24 Verified Infusion 22:00 Vancomycin Per PHA 08/19/24 Verified Pharmacy 16:45 Midodrine Tablet PHA 08/19/24 Verified (Proamatine Tablet) 22:00 Complete Blood Count LAB 08/20/24 Verified 04:00 Comprehensive LAB 08/20/24 Verified Metabolic Panel 04:00 Dietary Evaluation Review Comments: 1) Continue stool softener and laxative PRN 2) Encourage optimal PO intake 3) Advance to 60g CCHO cardiac diet when medically feasible 4) Follow-up with gastroenterology 5) Continue to monitor I&O, labs, and skin integrity Expected Outcomes/Goals: 1) appetite and labs to improve 2) diet to advance 3) f/u in 3-5 days Date of Service: Aug 19, 2024 Billing Provider: PENNY CALY MD Common Visit Codes: [id number] INP/OBS CARE(HIGH) ALAN BRANTLEY RESIDENT Aug 19, 2024 16:59 PENNY CLAY MD Aug 27, 2024 02:11
[2024-08-19] MEDS: ONDANSETRON HCL 4 MG/2 ML VIAL IV PRN (18:13)
[2024-08-19] MEDS: VANCOMYCIN 1.75GM/350ML 350 ML IV ONE (18:21)
[2024-08-19] MEDS: MIDODRINE HCL 10 MG TAB PO SCH (21:22)
[2024-08-19] MEDS: CEFEPIME 2GM/50ML NS 50 ML IV SCH (22:43)
[2024-08-20] VITALS (32 sets, daily range): BP systolic 81–116; BP diastolic 46–72; PULSE 12–97; RESP 17–22; TEMP 97.8–99.5; O2SAT 92–99
[2024-08-20 06:29] LABS: Hematocrit 34.6 % (41.0-53.0); Hemoglobin 11.4 g/dL (13.5-17.5); Mean Corpuscular Hemoglobin 27.5 pg (28.0-32.0); Mean Corpuscular Volume 83.5 fL (80.0-100.0); Nucleated Red Blood Cells % 0.1 %
[2024-08-20 06:40] LABS: Alanine Aminotransferase 21 U/L (7-40); Albumin 3.2 g/dL (3.2-4.8); Alkaline Phosphatase 52 U/L (46-116); Anion Gap 11 (5-15); Calcium 8.8 mg/dL (8.7-10.4); Carbon Dioxide 24 mmol/L (20-31); Glucose 103 mg/dL (74-106); Sodium 144 mmol/L (136-145)
[2024-08-20 06:41] LABS: Bilirubin, Total 0.4 mg/dL (0.2-1.0)
[2024-08-20 06:43] LABS: BUN/Creatinine Ratio 5.4 (10.0-20.0); Blood Urea Nitrogen < 5 mg/dL (9-23); Chloride 109 mmol/L (98-107); Potassium 3.4 mmol/L (3.5-5.1); Total Protein 5.4 g/dL (5.7-8.2)
[2024-08-20] MEDS: MIDODRINE HCL 10 MG TAB PO STA (08:45)
[2024-08-20] MEDS: POTASSIUM EFFERVESENT TAB 25 MEQ PO ONE (10:30)
[2024-08-20] MEDS: VANCOMYCIN 1.75GM/350ML 350 ML IV ONE (10:48)
--- NOTE | 2024-08-20 17:34 | DVHPNRES ---
Progress Note Date Seen: Aug 20, 2024 Resident Creating Document: ALAN BRANTLEY RESIDENT Has the PT tested + for MRSA If YES, has PT been informed?: No Medical Necessity Reason Pt with a Central, PICC or Fol: No Subjective Review of Systems Review of Systems This is a 44-year-old male with past medical history of Down syndrome, asthma, hyperlipidemia, arthritis, hypothyroidism, sleep apnea, chronic hematochezia, history of SBO, presented to the ED with chief complaint of abdominal pain and low back pain. Per mother, the patient was complaining of abdominal discomfort associated with moderate lower back pain. The mother stated that the pain has been going on for the last couple of weeks. The patient has a history of a MRI of the abdomen showing a mass with mesenteric lymph nodes performed at [place], at that time they recommended to do an enteroscopy at [facility] but the mother stated that she took her son but stated abdominal imaging and they said that the procedure was not needed at that time. The patient is currently on continuous 2 L of oxygen through nasal cannula. The mother states that the patient had had recurrent bowel obstructions at least twice before with no surgery performed. 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 There were also mesentery with mild prominent mesenteric lymph nodes and hepatic steatosis. Surgery was consulted due to possible SBO, surgery recommended a small bowel series with Gastrografin which came back unremarkable. Chest x-ray and lumbar spine x-ray were both unremarkable as well. Patient was admitted for further assessment and management. Patient seen and examined at bedside. Mother was present at bedside asking multiple questions and having multiple concerns. All of them were addressed. Patient had feverish overnight, we will start the patient on IV metronidazole and ceftriaxone. Patient is tolerating clear liquid diet without complications. We will progress to full liquid diet and progress as tolerated. Patient still has very minimal discomfort abdominal region and is currently complaining of lower back pain at the level of the hips. 08/19/24 The patient is a 44-year-old male with Down syndrome, chronic constipation, hypothyroidism, hyperlipidemia, asthma, MONTY, and prior SBO evaluation, who was initially stabilized for discharge. However, over the past 1218 hours, the patient has developed progressively worsening hypotension with systolic BP consistently <90 mmHg and sometimes dropping into the 80s, diastolic BP falling below 6050s, without evidence of volume overload . He is alert and interactive per baseline, but more lethargic today. Family reports decreased oral intake since last night, and he has had only 1 bowel movement over the last 24 hours. He is tolerating clear liquids but has reduced appetite. Due to unstable BP, the team has decided not to discharge today. Midodrine 10 mg PO TID has been initiated to support BP. Blood cultures have been re-ordered to rule out occult infection. Due to concern for early sepsis or undetected GI translocation, empiric broad-spectrum antibiotics have been started: * Vancomycin IV * Cefepime IV * Metronidazole IV No fevers, but leukocytosis and subtle decline in clinical picture raise concern. 08/20/24 he patients recent abdominal pain now improving, being treated for suspected sepsis and hypotension. He reports feeling better today, less weak, and denies abdominal pain or nausea. He had two bowel movements and is tolerating soft mechanical diet. No vomiting, chest pain, or new confusion. However, oxygen saturations are dropping to 86% on room air, though he improves with 2L NC. He is currently not ready for discharge due to oxygen dependency and awaiting portable oxygen delivery from [facility] DME vendor. His hypotension improved on Midodrine and orthostatic are normal and his baseline blood pressure is low. Review of Systems (ROS): * Constitutional: No fever, chills, or night sweats * Cardiovascular: No chest pain, no palpitations * Respiratory: No cough or shortness of breath at rest * GI: No nausea or vomiting; bowel movements x2 today * : Voiding normally * Neuro: At baseline per family * MSK: No new weakness or joint pain * Skin: No rashes or wounds noted * Psych: Calm, cooperative Objective vital signs Vital Sign Date Time Temp Pulse Resp B/P (MAP) Pulse Ox O2 Delivery O2 Flow Rate FiO2 08/20/24 16:07 78 103/64 (77) 08/20/24 13:10 98.4 20 94 98.4 08/20/24 08:00 Nasal Cannula* 2 28 Total Intake and Output 08/19/24 08/19/24 08/20/24 15:00 23:00 07:00 Intake Total 100 ml 1600 ml 700 ml Balance 100 ml 1600 ml 700 ml medications Current Medications Medications Dose Ordered Sig/Amrit Route Start Time Stop Time Status Last Admin Dose Admin Sodium Chloride 1,000 ml @ 125 mls/hr Q8H IV 08/16/24 12:00 08/20/24 03:06 125 MLS/HR Diagnostic Test (Pha) 1 strip ACHS 08/16/24 17:00 08/20/24 06:12 1 STRIP Insulin Human Regular ACHS SC 08/16/24 17:00 Dextrose 50 ml UD PRN IV 08/16/24 12:00 08/16/24 19:24 50 ML Acetaminophen/ Hydrocodone Bitart 1 tab Q4HP PRN PO 08/16/24 12:00 08/17/24 21:03 1 TAB Ondansetron HCl 4 mg Q4HP PRN IV 08/16/24 12:00 08/19/24 18:13 4 MG Acetaminophen 650 mg Q6HP PRN PO 08/16/24 12:00 08/19/24 17:53 650 MG Cholecalciferol 2,000 unit DAILY PO 08/17/24 10:00 08/20/24 08:18 2,000 UNIT Cyclobenzaprine HCl 10 mg BID PO 08/16/24 22:00 08/19/24 09:11 10 MG Patient Own Medication 145 mg DAILY PO 08/17/24 10:00 Levothyroxine Sodium 25 mcg DAILY@0600 PO 08/17/24 06:00 08/20/24 05:33 25 MCG Pantoprazole Sodium 40 mg DAILY IV 08/16/24 12:45 08/20/24 08:18 40 MG Polyethylene Glycol 17 gm DAILY PO 08/18/24 10:00 08/19/24 09:10 17 GM Lactulose 15 ml DAILY PO 08/17/24 12:45 Ibuprofen 600 mg Q8HP PRN PO 08/17/24 12:45 Docusate Sodium 100 mg BID PO 08/17/24 22:00 08/19/24 21:22 100 MG Metronidazole 100 ml @ 100 mls/hr Q8HR IV 08/18/24 14:00 08/20/24 14:32 100 MLS/HR Cefepime HCl 50 ml @ 12.5 mls/hr Q8HR IV 08/19/24 22:00 08/20/24 15:42 12.5 MLS/HR Vancomycin HCl 0 ml @ 0 mls/hr UD IV 08/19/24 16:45 Midodrine 10 mg TID PO 08/19/24 22:00 08/20/24 14:30 10 MG Examination * Vitals: BP 102/56, HR 72, RR 18, T 97.8F, SpO 86% RA? improves to 9294% on 2L NC * General: Awake, alert, in no acute distress * HEENT: PERRLA, oropharynx clear * CV: RRR, no murmurs, JVD not elevated * Resp: Mild tachypnea, no wheezes * Abdomen: Soft, non-distended, non-tender * Extremities: No edema, warm, well-perfused * Neuro: Follows commands, non-focal, at baseline * Skin: Intact * Psych: Non-agitated, calm laboratory and microbiology Laboratory Tests 08/20/24 05:17 Test 08/20/24 05:17 Range/Units Serum Glucose 103 74-106 mg/dL Microbiology Date/Time Source Procedure Growth Status 08/19/24 17:10 Blood Blood Culture - Preliminary NO GROWTH AFTER 24 HOURS OF INCUBATION. Resulted 08/17/24 04:40 Nose MRSA Screen - Final Complete Problem List/Assessment/Plan Problem List/Assessment/Plan 1.Hypotension, chronic * Baseline SBP in 80s90s, improved to 102/56 today on Midodrine 10 mg TID * Orthostatic vitals normal today * Midodrine continued * Ruled out septic shock; now hemodynamically stable 2. Hypoxic respiratory failure, acute on chronic * Saturation falls to 86% on room air * Improved with O? via nasal cannula 2L * Awaiting DME delivery for home oxygen * ABG ordered to investigate hypoxia cause * Started Duoneb (albuterol + ipratropium) Q6H, EZPAP, incentive spirometry * Suspected component: MONTY, deconditioning, atelectasis 3. Abdominal pain resolved, SBO ruled out * Gastrografin study and clinical picture inconsistent with SBO * Now tolerating diet and having regular BMs * No surgical signs 4. Suspected sepsis ruled out * Started empirically on cefepime, vancomycin, metronidazole * Blood cultures x2 negative, MRSA PCR negative, afebrile * Consider stopping antibiotics after infectious disease review if clinically stable 5. Chronic constipation * Had 2 bowel movements today * Continued on MiraLAX and Colace 6. Developmental delay due to Down syndrome * At baseline per family * Cognition intact, alert, verbal 7. MONTY on home oxygen * Continue 2L NC at night and PRN * Needs portable tank for safe discharg 8. Hypothyroidism Stable * On home levothyroxine 9. Chronic anemia Stable * No recent drop in H/H * No signs of bleeding or hemolysis Treatment Plan (System-[place]): Cardiovascular: * Continue Midodrine 10 mg PO TID * Monitor BP/orthostatics daily * Ensure upright posture after midodrine dosing ? Respiratory: * Duoneb (Albuterol 2.5 mg + Ipratropium 0.5 mg) Q6H * EZPAP and incentive spirometry Q4H while awake * Oxygen 2L NC to maintain SpO? >92% * ABG to evaluate hypoxia etiology * Out-of-bed to chair and ambulation to reduce atelectasis * Awaiting portable O? delivery from [facility] DME vendor Infectious Disease: * Continue cefepime, vancomycin, metronidazole IV * Pending full clinical improvement ? consider de-escalation after 48h afebrile, negative cultures * Monitor WBC, lactate GI: * Continue MiraLAX 17 g PO daily * Docusate 100 mg PO BID * Dicyclomine (Bentyl) 20 mg PO TID PRN for cramping Pain: * Acetaminophen 650 mg PO Q6H PRN * Hydrocodone/Acetaminophen 5/325 mg PO Q6H PRN moderate-severe pain Neuro / Endocrine: * Continue levothyroxine PO daily (home dose) * Monitor TSH if clinically indicated Skin / Mobility: * Encourage ambulation TID * OOB to chair * Reposition to prevent pressure injury Hematologic: * Monitor Hgb, Plt, WBC trends * Consider iron panel, retic count if anemia worsens MSK / Pain: * [place] and Tylenol PRN * Prophylaxis: * DVT prophylaxis: SCD * GI prophylaxis: * Pantoprazole 40 mg IV QDay * Skin care: Daily checks for pressure ulcers * Fall precautions due to hypotension and developmental delay FULL CODE STATUS, CASE DISCUSSED WITH ATTENDING PHYSICIAN, RN and patient's mother. Plan discussed with: Other (Mother and brother) My Orders My Orders Orders - ALAN BRANTLEY RESIDENT Procedure Category Date Status Time Creatinine LAB 08/21/24 Verified 04:00 Vancomycin,Random LAB 08/21/24 Verified 04:00 Discharge DISCHARGE 08/20/24 Transmitted 12:36 Orthostatic Vital ORDERS 08/20/24 Transmitted Signs 15:41 Dietary Evaluation Review Comments: 1) Continue stool softener and laxative PRN 2) Encourage optimal PO intake 3) Advance to 60g CCHO cardiac diet when medically feasible 4) Follow-up with gastroenterology 5) Continue to monitor I&O, labs, and skin integrity Expected Outcomes/Goals: 1) appetite and labs to improve 2) diet to advance 3) f/u in 3-5 days Date of Service: Aug 20, 2024 Billing Provider: PENNY CLAY MD Common Visit Codes: [id number] INP/OBS CARE(HIGH) ALAN BRANTLEY RESIDENT Aug 20, 2024 17:34 PENNY CLAY MD Aug 27, 2024 02:24
[2024-08-20] MEDS: ALBUTEROL SULF 2.5 MG/0.5ML(0.5%) NEB SOLN NEB SCH (18:00)
[2024-08-20] MEDS: ALBUTEROL SULF 2.5 MG/0.5ML(0.5%) NEB SOLN NEB ONE (18:23)
[2024-08-20] MEDS: IPRATROPIUM BROM 0.5 MG/2.5ML INH SOL NEB ONE (18:23)
[2024-08-21] VITALS (12 sets, daily range): BP systolic 92–111; BP diastolic 48–62; PULSE 12–90; RESP 16–18; TEMP 97.4–98.3; O2SAT 91–100
[2024-08-21 05:45] LABS: Hemoglobin 11.6 g/dL (13.5-17.5)
[2024-08-21 05:51] LABS: Hematocrit 35.5 % (41.0-53.0); Mean Corpuscular Hemoglobin 27.5 pg (28.0-32.0); Mean Corpuscular Volume 83.8 fL (80.0-100.0); Nucleated Red Blood Cells % 0.0 %
[2024-08-21 06:13] LABS: Alanine Aminotransferase 19 U/L (7-40); Albumin 3.2 g/dL (3.2-4.8); Alkaline Phosphatase 52 U/L (46-116); Anion Gap 9 (5-15); Calcium 9.1 mg/dL (8.7-10.4); Carbon Dioxide 26 mmol/L (20-31); Chloride 107 mmol/L (98-107); Glucose 103 mg/dL (74-106); Sodium 142 mmol/L (136-145)
[2024-08-21 06:22] LABS: BUN/Creatinine Ratio 5.0 (10.0-20.0); Blood Urea Nitrogen < 5 mg/dL (9-23); Potassium 3.3 mmol/L (3.5-5.1); Total Protein 5.5 g/dL (5.7-8.2)
[2024-08-21] MEDS: POTASSIUM EFFERVESENT TAB 25 MEQ PO ONE (06:30)
[2024-08-21 06:36] LABS: Bilirubin, Total 0.5 mg/dL (0.2-1.0)
[2024-08-21] MEDS: IPRATROPIUM BROM 0.5 MG/2.5ML INH SOL NEB PRN (07:09)
[2024-08-21] MEDS: POTASSIUM CHL 20MEQ/100ML 100 ML IV ONE (10:09)
[2024-08-21 11:58] LABS: Base Excess 0.5 mmol/L (-2.0-3.0)
[2024-08-21] MEDS ORDERED: MIDO10TA10 PO (14:25)
--- NOTE | 2024-08-21 18:41 | DVHDSRES ---
Discharge Summary Date of Admission Resident Creating Document: ALAN BRANTLEY JORGE RESIDENT Aug 16, 2024 at 11:54 Date of Discharge: Aug 19, 2024 Labs/Diagnostic Data: Laboratory Results Test 08/21/24 18:06 08/21/24 11:41 08/21/24 05:07 08/18/24 12:50 POC Glucose 147 mg/dl (70-106) Blood Gas Specimen Type Arterial Blood Gas Sample Site Left radial Blood Gas Patient Temperature 37.0 Arterial Blood Date Drawn [id number] Arterial Blood pH 7.452 (7.350-7.450) Arterial Blood Partial Pressure CO2 35.2 mmHg (35.0-48.0) Arterial Blood Partial Pressure O2 62.4 mmHg (83.0-108.0) Arterial Blood HCO3 24.0 mmol/L (21.0-28.0) Arterial Blood Oxygen Saturation 90.8 % (94.0-98.0) Arterial Blood Base Excess 0.5 mmol/L (-2.0-3.0) Arterial Blood Oxyhemoglobin 89.6 % (94.0-98.0) Arterial Blood Carboxyhemoglobin 1.0 % (0.5-1.5) Arterial Blood Methemoglobin 0.3 % (0.0-1.5) Shane Test Yes Blood Gas Total Hemoglobin 13.30 g/dL (13.5-17.5) Blood Gas Liter Flow 0.00 Blood Gas Modality Room air FiO2 % 21.0 White Blood Count 4.5 10^3/uL (4.4-10.8) Red Blood Count 4.24 10^6/uL (4.5-5.90) Hemoglobin 11.6 g/dL (13.5-17.5) Hematocrit 35.5 % (41.0-53.0) Mean Corpuscular Volume 83.8 fL (80.0-100.0) Mean Corpuscular Hemoglobin 27.5 pg (28.0-32.0) Mean Corpuscular Hemoglobin Concent 32.8 g/dL (32.0-36.0) Red Cell Distribution Width 23.0 % (11.8-14.3) Platelet Count 195 10^3/uL (140-450) Mean Platelet Volume 7.6 fL (6.9-10.8) Neutrophils (%) (Auto) 58.7 % (37.0-80.0) Lymphocytes (%) (Auto) 27.0 % (10.0-50.0) Monocytes (%) (Auto) 12.9 % (0.0-12.0) Eosinophils (%) (Auto) 0.7 % (0.0-7.0) Basophils (%) (Auto) 0.7 % (0.0-2.0) Neutrophils # (Auto) 2.7 10 ^3/uL (1.6-8.6) Lymphocytes # (Auto) 1.2 10 ^3/uL (0.4-5.4) Monocytes # (Auto) 0.6 10 ^3/uL (0-1.3) Eosinophils # (Auto) 0 10 ^3/uL (0-0.8) Basophils # (Auto) 0 10 ^3/uL (0-0.2) Nucleated Red Blood Cells 0.0 % Sodium Level 142 mmol/L (136-145) Potassium Level 3.3 mmol/L (3.5-5.1) Chloride Level 107 mmol/L (98-107) Carbon Dioxide Level 26 mmol/L (20-31) Anion Gap 9 (5-15) Blood Urea Nitrogen < 5 mg/dL (9-23) Creatinine 1.01 mg/dL (0.700-1.30) Glomerular Filtration Rate Calc 95 mL/min (>90) BUN/Creatinine Ratio 5.0 (10.0-20.0) Serum Glucose 103 mg/dL (74-106) Calcium Level 9.1 mg/dL (8.7-10.4) Total Bilirubin 0.5 mg/dL (0.2-1.0) Aspartate Amino Transferase (AST) 28 U/L (13-40) Alanine Aminotransferase (ALT) 19 U/L (7-40) Alkaline Phosphatase 52 U/L (46-116) Total Protein 5.5 g/dL (5.7-8.2) Albumin 3.2 g/dL (3.2-4.8) Random Vancomycin Level < 3.0 ug/mL (5-10) Lactic Acid Level 1.0 mmol/L (0.4-2.0) Test 08/18/24 05:50 08/16/24 13:32 08/16/24 09:33 08/15/24 22:01 Differential Total Cells Counted 100.0 (100) Neutrophils % (Manual) 69 (37.0-80.0) Band Neutrophils % (Manual) 4 Lymphocytes % (Manual) 18 (10.0-50.0) Monocytes % (Manual) 9 (0-12) Eosinophils % (Manual) 0 (0-7) Basophils % (Manual) 0 (0.0-2.0) Metamyelocytes % (manual) 0 Myelocytes % (Manual) 0 Promyelocytes % (Manual) 0 Blast Cells % (Manual) 0 Reactive Lymphocytes 0 Platelet Estimate Adequate Group A Streptococcus Rapid Positive Hemoglobin A1c 6.1 % A1C (<5.7) Prothrombin Time 12.2 sec (9.3-11.8) Prothrombin Time INR 1.17 (0.9-1.15) Activated Partial Thromboplast Time 28.1 SEC (24.5-34.5) Urine Color Yellow (Yellow) Urine Clarity Clear (Clear) Urine pH 6.0 (5.0-9.0) Urine Specific [place] 1.034 (1.001-1.035) Urine Protein Trace (Negative) Urine Ketones Negative (Negative) Urine Blood Negative /uL (Negative) Urine Nitrite Negative (Negative) Urine Bilirubin Negative (Negative) Urine Urobilinogen Normal mg/dL (Negative) Urine Leukocyte Esterase Negative /uL (Negative) Urine RBC 3 /hpf (0 - 3) Urine Microscopic WBC < 1 /HPF (0-3) Urine Squamous Epithelial Cells Few /hpf (<5) Urine Calcium Oxalate Crystals Few (None Seen) Urine Bacteria Few /hpf (None Seen) Urine Mucus Few (None Seen) Urine Glucose Normal mg/dL (Normal) Other Laboratory Tests 08/21/24 05:07 Brief Hx & Hospital Course: The patient is a 44-year-old male with Down syndrome, obstructive sleep apnea, chronic hypotension, hypothyroidism, and history of constipation, who presented with abdominal pain, hypotension, and intermittent oxygen desaturation. Admission Findings: * BP: Systolic in the 80s-90s * SpO?: 86% on room air * WBC: Elevated (suspected infection) * CT abdomen: Dilated small bowel loops, concern for SBO, * Started empirically on IV cefepime, vancomycin, and metronidazole * Serial abdominal exams and gastrografin small bowel series ruled out bowel obstruction Repeat CT abdomen revealed Lorena mesentery with mildly prominent mesenteric lymph nodes, its a chronic finding. * Oxygen was initially continued at 2L NC pending further evaluation Course: * Blood cultures, MRSA swab, and stool studies were negative * Orthostatic vitals normalized, BP improved with midodrine 10 mg PO TID * SpO2 improved to >93% on room air, even with ambulation * Potassium corrected from 3.3 to normal range with IV potassium 20 mEq * WBC normalized to 4.5 * Abdominal pain improved, with return of bowel movements, tolerating regular diet * Stable for discharge Operations or Procedures PATIENT: JIM NGUYỄN RACCT: [id number] UNIT: [id number] : 1980 [facility]GE / SEX: 44 / M ADM STATUS: ADM IN SERVICE 42 ORDERING PHYSICIAN: VALENTINO VOSS MD PROCEDURE(s): ABPLIV - CT AB PEL WITH IV CON ONLY REASON: BUN 0.99 ORDER NUMBER(s): [id number], ACCESSION NUMBER(s): [id number] EXAM: CT CT AB PEL WITH IV CON ONLY HISTORY: BUN 0.99 COMPARISON: CT AB PEL WITH IV CON ONLY on DOS: 12/14/21 TECHNIQUE: Helical CT images of the abdomen and pelvis were performed with 100 mL omnipaque 300 IV contrast. Sagittal and coronal reformatted images were obtained. This CT exam was performed using 1 or more of the following dose reduction techniques: Automated exposure control, adjustment of the mA and/or kv according to patient size, or the use of iterative reconstruction techniques. Radiation Dose Information: CT Dose: CTDI volume is 16.57 mGy. Dose-length product is 1013.89 mGy*cm FINDINGS: CT abdomen: There is bilateral lower lobe scarring versus atelectasis. There is peribronchial thickening in the lung bases. The heart is not enlarged. There is a trace pericardial effusion. The liver is diffusely heterogeneous low attenuation. There is free fluid in the upper abdomen, greatest adjacent to the duodenum and gallbladder. The spleen, gallbladder, pancreas, kidneys, and adrenal glands are unremarkable. No abdominal aortic aneurysm or dissection. CT pelvis: No abnormal bowel dilatation, free air, or free fluid. The cecum and appendix are atypically located in the right upper quadrant. There are mildly prominent lymph nodes in the central mesenteric fat. The appendix is not dilated. The urinary bladder is unremarkable. IMPRESSION: 1. Reactive airways disease and scarring versus atelectasis in the lung bases. 2. Diffuse heterogeneous low-attenuation of the liver consistent with hepatic steatosis. 3. Upper abdominal fluid, greatest about the duodenum and gallbladder. Correlate for possible cholecystitis and/or duodenitis. Right upper quadrant ultrasound may be warranted. 4. No evidence of bowel obstruction, acute appendicitis, or other acute process in the abdomen or pelvis. ATED BY: SOHEILA JADE MD DICTATED DATE/TIME: 08/19/24448 SIGNED BY: SOHEILA JADE MD SIGNED DATE/TIME: 08/19/24448 CC: PATIENT: JIM NGUYỄN RACCT: [id number] UNIT: [id number] : 1980 [facility]GE / SEX: 44 / M ADM STATUS: ADM IN SERVICE 1221 ORDERING PHYSICIAN: CIRO PEREZ BANDER HAND PROCEDURE(s): CXR1 - CHEST XRAY 1 VIEW REASON: sob ORDER NUMBER(s): [id number], ACCESSION NUMBER(s): [id number] CHEST RADIOGRAPH Indication: sob Technique: Single frontal view of the chest was obtained Comparison: None FINDINGS: The cardiac silhouette is unremarkable. The lungs demonstrate perihilar airspace opacities. The pulmonary vasculature is mildly prominent. There is no pleural effusion.. There is no pneumothorax. IMPRESSION: As above ATED BY: RUBEN HARDING MD DICTATED DATE/TIME: 08/16/24 1256 SIGNED BY: RUBEN HARDING MD SIGNED DATE/TIME: 08/16/24 1256 CC: PATIENT: JIM NGUYỄN RACCT: [id number] UNIT: [id number] : 1980 [facility] AGE / SEX: 44 / M ADM STATUS: ADM IN SERVICE 1154 ORDERING PHYSICIAN: CIRO PEREZ BANDER HAND PROCEDURE(s): LUMB2 - LUMBAR SPINE 3 VIEW REASON: low back pain ORDER NUMBER(s): [id number], ACCESSION NUMBER(s): [id number] INDICATION: low back pain TECHNIQUE: 2 views of the lumbar spine were obtained. COMPARISON: None FINDINGS: There are no acute fractures or subluxations. IMPRESSION: No acute fracture or subluxation. ATED BY: LEONARD ALCANTARA MD DICTATED DATE/TIME: 08/16/24 1251 SIGNED BY: LEONARD ALCANTARA MD SIGNED DATE/TIME: 08/16/24 1251 CC: PATIENT: JIM NGUYỄN RACCT: [id number] UNIT: [id number] : 1980 LOC: OVERFLOW ROOM / [facility]ED: [facility] / A AGE / SEX: 44 / M ADM STATUS: ADM IN SERVICE 0808 ORDERING PHYSICIAN: ROGELIO SMITH NP PROCEDURE(s): SMBG - SMALL BOWEL SERIES-W GASTROGRA REASON: r/o OBSTRUCTION ORDER NUMBER(s): [id number], ACCESSION NUMBER(s): [id number] Procedure: XY SMALL BOWEL SERIES-W GASTROGRA Reason for study/Clinical History: r/o OBSTRUCTION Comparison Study: None Technique: Single contrast small bowel series performed. FINDINGS/IMPRESSION: Initial yard hand view of the abdomen and pelvis appears demonstrates no acute process. Contrast is identified within the colon by 2 hours. This represents a normal small bowel transit time. ATED BY: LEONARD ALCANTARA MD DICTATED DATE/TIME: 08/16/24 1305 SIGNED BY: LEONARD ALCANTARA MD SIGNED DATE/TIME: 08/16/24 1305 CC: PATIENT: JIM NGUYỄN RACCT: [id number] UNIT: [id number] : 1980 LOC: ER ROOM / BED: / AGE / SEX: 44 / M ADM STATUS: REG ER SERVICE 9427 ORDERING PHYSICIAN: DANA CHAMBERS MD PROCEDURE(s): ABPL - CT AB PEL WO CON-NO ORAL OR IV REASON: lower abdominal and back pain ORDER NUMBER(s): [id number], ACCESSION NUMBER(s): [id number] Exam: CT CT AB PEL WO CON-NO ORAL OR IV History: lower abdominal and back pain Comparison Study: CT CT AB PEL WO CON-NO ORAL OR IV on DOS: 07/11/24, GIWAG on DOS: 08/20/21, CT ABD PELVIS WO CONTRAST on DOS: 08/15/21 TECHNIQUE: Multidetector CT of the abdomen and pelvis was performed from lung bases to pubic symphysis. Imaging was performed without IV contrast. Axial, coronal and sagittal multiplanar reformats were obtained from the axial data set by the technologist. Radiation optimization: All CT scans at this facility use at least one of these dose optimization techniques: automated exposure control mA and/or kV adjustment per patient size (includes targeted exams where dose is matched to clinical indication) or iterative reconstruction. Radiation Dose Information: CT Dose: CTDI volume is 14.9 mGy. Dose-length product is 889 mGy*cm FINDINGS: Evaluation of solid organs is limited due to lack of intravenous contrast use. Imaged portions of the lung bases demonstrate subsegmental atelectasis. There is a small hiatal hernia. There is diffuse hepatic steatosis. Gallbladder, spleen, adrenal glands, pancreas, and kidneys appear unremarkable. No evidence of bowel obstruction. Single abnormal appearing dilated loop of small bowel in the right lower quadrant measuring 3.5 cm with a aneurysmal portion with sharp angulation and fecalization of internal contents. Mildly prominent mesenteric lymph nodes measuring up to 0.6 cm in short axis with lorena mesentery. No free fluid, free air, or adenopathy. No suspicious osseous lesion. IMPRESSION: 1. Single abnormal appearing dilated loop of small bowel in the right lower quadrant measuring 3.5 cm with a aneurysmal portion with sharp angulation and fecalization of internal contents. Consider small-bowel follow-through or CT enterography for further evaluation. 2. Lorena mesentery with mildly prominent mesenteric lymph nodes, nonspecific. Short-term follow-up is recommended. 3. Lobulated appearance of the liver with hepatic steatosis. Correlation with lFTs is recommended. ATED BY: VERONICA PENA MD DICTATED DATE/TIME: 08/16/24354 SIGNED BY: VERONICA PENA MD SIGNED DATE/TIME: 08/16/24354 CC: Condition at Discharge: Stable Final Diagnosis/Problems List Gastroenteritis:- small bowel obstruction ruled out. Chronic constipation managed with bowel regimen. Hypotension likely related to baseline low BP and volume status; improved with midodrine and IV fluids. Hypoxia chronic issue; PaO2 and SpO2 stable on room air Suspected sepsis ruled out; negative cultures, normalized WBC count, and afebrile. Mild hypokalemia resolved with IV potassium. Down syndrome Obstructive sleep apnea Hypothyroidism Hyperlipidemia Chronic mild anemia Mechanical low back pain Lorena mesentery with mesenteric lymphadenopathy, possible malignancy Hepatic steatosis (NAFLD suspected) Discharge Disposition: Home Discharge Instruct/Medications Diet: See Comment Diet comment: Continue soft mechanical diet for 3to 5 days, then advance to regular as tolerated Activity: No Restrictions, As Tolerated Follow Up/Referral: Primary Care Physician (PCP) * Within 35 days of discharge * For review of imaging, liver steatosis, labs, and medication adjustment * Request LFT panel and full metabolic panel * Date: August 24, 2024 Gastroenterology * Within 23 weeks * For evaluation of hepatic steatosis and lorena mesentery with prominent lymph nodes * Request liver ultrasound and further work-up Outpatient Imaging Follow-Up * Repeat CT abdomen with contrast or MRI enterography in 3 months if symptoms recur Medications: Dicyclomine (Bentyl) 10 mg PO BID PRN * For abdominal spasms * Take before meals and at bedtime Amoxicillin-Clavulanate (Augmentin) 875 mg/125 mg PO BID x7 days * For empiric GI tract bacterial coverage * Finish entire course Acetaminophen (Tylenol) 500 mg PO Q6H PRN mild pain * Max 3 g/day * Avoid doubling with Celina Hydrocodone/Acetaminophen (Celina) 5/325 mg PO Q6H PRN moderate to severe pain * Limit to =4 doses/day * Use only if pain not controlled with Tylenol Polyethylene Glycol (MiraLAX) 17 g PO daily * For constipation * Mix in water or juice Docusate Sodium (Colace) 100 mg PO BID * Stool softener Midodrine 10 mg PO TID Continue until PCP follow up. Monitor for supine hypertension New Medications: Acetaminophen (Tylenol Extra Strength) 500 Mg Tab 500 MG PO Q6HP PRN for 10 Days, #40 TAB Amoxicillin & Pot Clavulanate (Augmentin Tablet) 875 Mg Tb 875 MG PO BID for 7 Days, #14 TAB Dicyclomine Hcl (Bentyl Capsule) 10 Mg Cp 10 MG PO BID for 14 Days, #28 CAP Docusate Sodium (Colace) 100 Mg Cap 100 MG PO BID for 14 Days, #28 CAP Midodrine HCl (Midodrine Hydrochloride) 10 Mg Tab 10 MG PO TID for 30 Days, #90 TAB Polyethylene Glycol 3350 (Miralax) 17 Gm Pow 17 GM PO DAILY for 14 Days, #14 POW Continued Medications: Amoxicillin Trihydrate (Amoxicillin) 500 Mg Cap 1 CAP PO BID for 10 Days, #20 CAP Cephalexin (Keflex Capsule) 250 Mg Cp 400 MG PO QID Cholecalciferol (Vitamin D3) 2,000 Unit Tab 1 TAB PO DAILY, #30 TAB 5 Refills Ciprofloxacin Hcl (Cipro) 500 Mg Tab 500 MG PO BID for 7 Days, #14 TAB Cyclobenzaprine Hcl (Cyclobenzaprine Hcl) 7.5 Mg Tab 10 MG PO BID, TAB Fenofibrate (Tricor) 145 Mg Tab 145 MG PO DAILY, TAB Ferrous Sulfate (Ferrous Sulfate) 324 Mg Tab 1 TAB PO DAILY Levofloxacin (Levaquin) 500 Mg Tab 500 MG PO DAILY PRN, #30 TAB Levothyroxine Sodium (Synthroid) 25 Mcg Tab 1 TAB PO DAILY, #30 TAB 5 Refills Loratadine (Claritin) 10 Mg Tab 1 TAB PO DAILY, #30 TAB 5 Refills Metronidazole (Flagyl) 500 Mg Tab 500 MG PO TID, #21 TAB Metronidazole (Flagyl) 500 Mg Tab 1 TAB PO TID for 7 Days, #21 TAB Pantoprazole Sodium Sesquihydr (Protonix) 40 Mg Tab 40 MG PO DAILY, #30 TAB Care Plan: Take medications as prescribed. Monitor blood pressure and symptoms such as dizziness, chest pain, or confusion. Return to emergency room if fever >100.4F, persistent vomiting, abdominal distension, no bowel movement for more than 3 days, new or worsening shortness of breath, or fainting. Encouraged to hydrate well, maintain soft diet for a few days, and stay mobile. Scheduled Amoxicillin & Pot Clavulanate (Augmentin Tablet), 875 MG PO BID Amoxicillin Trihydrate (Amoxicillin), 1 CAP PO BID Cephalexin (Keflex Capsule), 400 MG PO QID, (Reported) Cholecalciferol (Vitamin D3), 1 TAB PO DAILY, (Reported) Ciprofloxacin Hcl (Cipro), 500 MG PO BID Cyclobenzaprine Hcl (Cyclobenzaprine Hcl), 10 MG PO BID, (Reported) Dicyclomine Hcl (Bentyl Capsule), 10 MG PO BID Docusate Sodium (Colace), 100 MG PO BID Fenofibrate (Tricor), 145 MG PO DAILY, (Reported) Ferrous Sulfate (Ferrous Sulfate), 1 TAB PO DAILY, (Reported) Levothyroxine Sodium (Synthroid), 1 TAB PO DAILY, (Reported) Loratadine (Claritin), 1 TAB PO DAILY, (Reported) Metronidazole (Flagyl), 500 MG PO TID Metronidazole (Flagyl), 1 TAB PO TID Midodrine HCl (Midodrine Hydrochloride), 10 MG PO TID Pantoprazole Sodium Sesquihydr (Protonix), 40 MG PO DAILY, (Reported) Polyethylene Glycol 3350 (Miralax), 17 GM PO DAILY Scheduled PRN Acetaminophen (Tylenol Extra Strength), 500 MG PO Q6HP PRN Levofloxacin (Levaquin), 500 MG PO DAILY PRN Discharge Statement: "Patient was advised to return to the ER or call 911 if any headaches, dizziness, shortness of breath, chest pain, abdominal pain, bleeding, fevers, or worsening of medical condition. Patient was counseled about treatment plan, medications, possible side effects, patientverbalized understanding. All questions were answered to the best of my ability. This discharge took greater then 30 minutes in planning, reviewing documentation, counseling the patient, and discussing with other team members." ASSESSMENT ASSESSMENT Assessment Gastroenteritis:- small bowel obstruction ruled out. Chronic constipation managed with bowel regimen. Hypotension likely related to baseline low BP and volume status; improved with midodrine and IV fluids. Hypoxia chronic issue; PaO2 and SpO2 stable on room air Suspected sepsis ruled out; negative cultures, normalized WBC count, and afebrile. Mild hypokalemia resolved with IV potassium. Down syndrome Obstructive sleep apnea Hypothyroidism Hyperlipidemia Chronic mild anemia Mechanical low back pain Lorena mesentery with mesenteric lymphadenopathy, possible malignancy Hepatic steatosis (NAFLD suspected) Date of Service: Aug 19, 2024 Billing Provider: PENNY CLAY MD Common Visit Codes: 01661-XHO/OBS DISCH DAY >30min ALAN BRANTLEY RESIDENT Aug 21, 2024 18:41 PENNY CLAY MD Aug 27, 2024 21:17
== END 2024-08-21 18:30 | disposition home or self-care (01) | DRG 249 ==
LOC: EDBD 21:43 → ER 21:43 → OVERFLOW 08-16 11:54 → EAST 08-16 17:14 → TELE-EAST 08-17 19:59
PROVIDERS: ADMIT Student in an Organized Health Care Education/Training Program; ATTEND Emergency Medicine
DX: A09 Infectious gastroenteritis and colitis, unspecified (principal); J96.01 Acute respiratory failure with hypoxia; C48.1 Malignant neoplasm of specified parts of peritoneum; I95.89 Other hypotension; K76.0 Fatty (change of) liver, not elsewhere classified; K59.00 Constipation, unspecified; E03.9 Hypothyroidism, unspecified; E66.9 Obesity, unspecified; J45.909 Unspecified asthma, uncomplicated; Z68.31 Body mass index [BMI] 31.0-31.9, adult; D64.9 Anemia, unspecified; Z99.81 Dependence on supplemental oxygen; M54.50 Low back pain, unspecified; Q90.9 Down syndrome, unspecified; G47.33 Obstructive sleep apnea (adult) (pediatric); E78.5 Hyperlipidemia, unspecified; E87.6 Hypokalemia; G89.29 Other chronic pain; R73.9 Hyperglycemia, unspecified; K92.1 Melena; D72.829 Elevated white blood cell count, unspecified; R62.59 Other lack of expected normal physiological development in childhood; R59.1 Generalized enlarged lymph nodes; Z79.899 Other long term (current) drug therapy; Z83.3 Family history of diabetes mellitus; Z82.61 Family history of arthritis; Z82.49 Family history of ischemic heart disease and other diseases of the circulatory system; Z82.3 Family history of stroke; Z84.1 Family history of disorders of kidney and ureter
CPT/HCPCS: 36415; 36600; 71045; 72100; 74176; 74177; 74250; 80048; 80053; 80202; 81001; 82805; 82962; 83036; 83605; 85007; 85025; 85027; 85610; 85730; 87040; 87081; 87880; 94640; 96361; 96374; 99291; G0378; J0692; J1885; J2003; J2212; J2405; J2470; J3480; J3490